=== PATIENT | female | born 2000 | race Caucasian/White ===

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

== ENCOUNTER → 2019-04-15 | Outpatient (REF) | payer OTHER | LOC: M SFHCLERA 18:37 | PROVIDERS: ATTEND Nurse Practitioner Family | DX: R53.81 Other malaise (principal) ==

== ENCOUNTER → 2020-01-25 | Outpatient (REF) | payer OTHER | LOC: M SFHCWAGY 16:47 | PROVIDERS: ATTEND Nurse Practitioner Family | DX: Z11.3 Encounter for screening for infections with a predominantly sexual mode of transmission (principal) ==

== ENCOUNTER 2020-05-09 00:04 | Emergency (ER) | payer OTHER ==
--- OUTSIDE RECORDS SUMMARY | 2020-05-09 00:14 | CCD ---
Author Author [facility] Organization [facility] Address Unknown Phone Unavailable Care Team Providers Care Mortgage Assistant Name Role Phone Felicitas Valdovinos Unavailable PROBLEMS Type Condition ICD9-CM Code [id number] Code Onset Dates Condition S tatus SNOMED Code Notes Problem Migraine with aura and without status migrainosu s, not intractable G43.109 Active 9875228 Problem Reactive airway disease with acute exacerbation, unspecified asthma severity, unspecified whether persistent J45.901 Active 579134593089 Problem Condyloma A63.0 Active 953874769 ALLERGIES Allergen (clinical drug ingredient) Drug/Non Drug Allergy do cumented on EMR Reaction Allergy Type Onset Date Status Seasonal congestion Non Drug Allergy Active ENCOUNTERS from 1999 to 2020-04-22 Encounter Location Date Provider Diagnosis [facility] [address] [place] [address] Mar, Felicitas Valdovinos Encounter for Depo-P rovera contraception Z30.42 and Encounter for surveillance of injectable contraceptive Z30.42 IMMUNIZATIONS Vaccine Route Administration Date Status Depo-Provera 150mg/1mL (Medroxy-Progestrone Acetate) IM Intr amuscular Apr 22, 2020 Administered Depo-Provera 150mg/1mL (Medroxy-Progestrone Acetate) IM Intr amuscular Jan 25, 2020 Administered Depo-Provera 150mg/1mL (Medroxy-Progestrone Acetate) IM Intr amuscular November 13, 2019 Administered Depo-Provera 150mg/1mL (Medroxy-Progestrone Acetate) IM Intr amuscular August 24, 2019 Administered Depo-Provera 150mg/1mL (Medroxy-Progestrone Acetate) IM Intr amuscular Jun 06, 2019 Administered Depo-Provera 150mg/1mL (Medroxy-Progestrone Acetate) IM Intr amuscular Mar 14, 2019 Administered Depo-Provera 150mg/1mL (Medroxy-Progestrone Acetate) IM Intr amuscular Dec 16, 2018 Administered Depo-Provera 150mg/1mL (Medroxy-Progestrone Acetate) IM Intr amuscular September 28, 2018 Administered SOCIAL HISTORY Tobacco Use: Social History Observation Description Date Details (start date - stop date) Current Smoker Sex Assigned At : Social History Observation Description Sex Assigned At Unknown Education: Question Answer Notes Level of Education: High School Language: Question Answer Notes Languages spoken: Gabonese Episcopal: Question Answer Notes Ep[employer] 21 Spirit[employer] Alcohol Screening: Question Answer Notes Did you have a drink containing alcohol in the past year? No Points 0 Interpretation Negative Tobacco Use: Question Answer Notes Are you a: current smoker Patient counseled on the dangers of tobacco use and urged to quit: 01/25/2020 How many cigarettes a day do you smoke? 5 or less Are you interested in quitting? Thinking about quitting Counseled the patient on smoking cessation, education provid ed 01/25/2020 REASON FOR REFERRAL No Information VITAL SIGNS No information MEDICATIONS Medication SIG (Take, Route, Frequency, Duration) Notes Start Da te End Date Status Cipro 500 MG 1 tablet Orally Twice a day for 7 day(s) 2017 Not-Taking Neti Pot Sinus Wash 2300-700 MG as directed Nasally bid for 10 d ay(s) Mar, Not-Taking Delsym 30 MG/5ML 10 ml as needed Orally every 12 hrs for 10 day( s) Mar, Not-Taking PredniSONE 10 MG 1 tablet Orally bid for 5 day(s) Mar, Not-Taking Adderall 15 MG 1 tablet Orally daily Active Paroxetine HCl 40 MG 1 tablet in the morning Orally Once a day Not-Taking Trintellix 20 MG 1 tablet Orally Once a day for 30 day(s) Active Flonase 50 MCG/ACT 1 spray in each nostril Nasally Twice a day f or 30 day(s) Mar, Active ZyrTEC Active Amitriptyline HCl 10 MG 1 tablet at bedtime Orally Once a day for 3 0 day(s) Not-Taking Albuterol Sulfate HFA 108 (90 Base) MCG/ACT 2 puffs as needed Inhalation every 6 hrs for 30 day(s) Mar, Active Podofilox 0.5 % 1 application to affected ar ea Externally to wart on mons Twice a day for three days then off x 4 days for 3 day(s) Sep, Not-Taking Depo-Provera 150 MG/ML 1 ml Intramuscular every 3 months for 90 day(s) Sep, Active Sudafed 30 MG 1 tablet as needed Orally every 6 hrs for 5 day(s) Mar, Not-Taking Paxil 30 MG 1 tablet in the morning Orally Once a day Not-Taking PROCEDURES from 1999 to 2020-04-22 Procedure Date Ordered Result Body Site Medication: Depo-Provera 150mg/1mL IM (Medroxyprogesterone A cetate) 2020-04-22 N/A RESULTS No Results REASON FOR VISIT DEPO MEDICAL (GENERAL) HISTORY Type Description Date Medical History recurrent UTIs Medical History anxiety Medical History migraine blurred vision vomiting pain be hind left eye Surgical History T & A Goals Section No Information Health Concerns No Information MEDICAL EQUIPMENT No Information MENTAL STATUS No Information FUNCTIONAL STATUS No Information ASSESSMENTS Encounter Date Diagnosis Assessment Notes Treatment Notes Treatm ent Clinical Notes Mar, Encounter for Depo-Provera contraception (ICD-10 - Z30.42) Mar, Encounter for surveillance o f injectable contraceptive (ICD-10 - Z30.42) PLAN OF TREATMENT Medication Medication Name Sig Start Date Stop Date Depo-Provera 150 MG/ML 1 ml Intramuscular every 3 months for 90 day(s) Sep, Next Appt Details Provider Name:Felicitas Valdovinos, 2020-07-08 11:00:00 AM, [address] [place], [address], Insurance Providers Payer Name Payer Address Payer Phone Insured Name Patient Relati onship to Insured Coverage Start Date Coverage End Date [employer] [address] [id number] [place] [address] [id number]
--- OUTSIDE RECORDS SUMMARY | 2020-05-09 00:14 | CCD ---
Author Author [facility] Organization [facility] Address Unknown Phone Unavailable Care Team Providers Care Research Hydrologist Name Role Phone Radha Ritter Unavailable PROBLEMS Type Condition ICD9-CM Code [id number] Code Onset Dates Condition S tatus SNOMED Code Notes Problem Migraine with aura and without status migrainosu s, not intractable G43.109 Active 0785513 Problem Reactive airway disease with acute exacerbation, unspecified asthma severity, unspecified whether persistent J45.901 Active 114437358113 Problem Condyloma A63.0 Active [id number] ALLERGIES Allergen (clinical drug ingredient) Drug/Non Drug Allergy do cumented on EMR Reaction Allergy Type Onset Date Status Seasonal congestion Non Drug Allergy Active ENCOUNTERS from 1999 to 2020-02-21 Encounter Location Date Provider Diagnosis [facility] [address] [place] [address] Jan, Radha Ritter Encounter for survei llance of injectable contraceptive Z30.42 ; Encounter for screening for infections with a predominantly sexual mode of transmission Z11.3 and Encounter for annual routine gynecological examination Z01.419 IMMUNIZATIONS Vaccine Route Administration Date Status Depo-Provera [...] School Language: Question Answer Notes Languages spoken: Czech Samaritan: Question Answer Notes [employer]ar[employer] 21 [employer] Alcohol Screening: Question Answer Notes Did you [...] REASON FOR REFERRAL No Information VITAL SIGNS Weight 128 lbs Jan, Height 69 in Jan, BMI 18.90 kg/m2 Jan, Blood pressure systolic 118 mm Hg Jan, Blood pressure diastolic 74 mm Hg Jan, MEDICATIONS Medication SIG (Take, Route, Frequency, Duration) Start Date En d Date Status Cipro 500 MG 1 tablet Orally Twice a day for 7 day(s) Nov, Not-Taking Neti Pot Sinus Wash 2300-700 MG as directed Nasally bid for 10 day(s) Mar, Not-Taking Delsym 30 MG/5ML 10 ml as needed Orally every 12 hrs for 10 day( s) Mar, Not-Taking PredniSONE 10 MG 1 tablet Orally bid for 5 day(s) Mar, Not-Taking Adderall 15 MG 1 tablet Orally daily Acti ve Paroxetine HCl 40 MG 1 tablet in the morning Orally Once a day Not-Taking Trintellix 20 MG 1 tablet Orally Once a day for 30 day(s) Active Flonase 50 MCG/ACT 1 spray in each nostril Nasally Twice a day for 30 day(s) Mar, Active ZyrTEC Active Amitriptyline [...] morning Orally Once a day Not-Taking PROCEDURES No Information RESULTS No Results REASON FOR VISIT ANNUAL MEDICAL (GENERAL) HISTORY Type Description Date Medical History recurrent UTIs Medical History anxiety Medical History migraine blurred vision vomiting pain be hind left eye Surgical History T & A Goals Section No Information Health Concerns No Information MEDICAL EQUIPMENT No Information MENTAL STATUS No Information FUNCTIONAL STATUS No Information ASSESSMENTS Encounter Date Diagnosis Notes Jan, Encounter for screening for infections with a predominantly sexual mode of transmission (ICD-10 - Z11.3) Jan, Encounter for surveillance o f injectable contraceptive (ICD-10 - Z30.42) Jan, Encounter for annual routine gynecological examination (ICD-10 - Z01.419) PLAN OF TREATMENT Medication Medication Name Sig Start Date Stop Date Depo-Provera 150 MG/ML 1 ml Intramuscular every 3 months for 90 day(s) Sep, Treatment Notes Test Name Order Date CHLAMYDIA & GC DNA AMPLIFICAT 2020-02-21 Future Test Test Name Order Date Medication: Depo-Provera 150mg/1mL IM (Medroxyprogeste olivia Acetate) 20201202 Medication: Depo-Provera 150mg/1mL IM (Medroxyprogeste olivia Acetate) 20200910 Medication: Depo-Provera 150mg/1mL IM (Medroxyprogeste olivia Acetate) 20200619 Medication: Depo-Provera 150mg/1mL IM (Medroxyprogeste olivia Acetate) [id number] Medication: Depo-Provera 150mg/1mL IM (Medroxyprogeste olivia Acetate) [id number] Next Appt Details 04/17/20 Reason:Depo Provera Provider Name:Radha Ritter, 2020-04-16 10:00:00 AM, [address] [place], [address], Follow Up:04/17/20Depo Provera Insurance Providers Payer Name Payer Address Payer Phone Insured Name Patient Relati onship to Insured Coverage Start Date Coverage End Date [facility] [id number] [facility] [id number] [id number]
--- OUTSIDE RECORDS SUMMARY | 2020-05-09 00:15 | CCD ---
Author Author [facility] Organization [facility] Address Unknown Phone Unavailable Care Team Providers Care Forcer Maker Name Role Phone GISSELLE LOTT MD Unavailable Unavailable GISSELLE LOTT MD Unavailable Unavailable GISSELLE LOTT MD Unavailable Unavailable GISSELLE LOTT MD Unavailable Unavailable GISSELLE LOTT MD Unavailable Unavailable GISSELLE LOTT MD Unavailable Unavailable GISSELLE LOTT MD Unavailable Unavailable GISSELLE LOTT MD Unavailable Unavailable GISSELLE LOTT MD Unavailable Unavailable GISSELLE LOTT MD Unavailable Unavailable GISSELLE LOTT MD Unavailable Unavailable GISSELLE LOTT MD Unavailable Unavailable GISSELLE LOTT MD Unavailable Unavailable GISSELLE LOTT MD Unavailable Unavailable GISSELLE LOTT MD Unavailable Unavailable GISSELLE LOTT MD Unavailable Unavailable GISSELLE LOTT MD Unavailable Unavailable GISSELLE LOTT MD Unavailable Unavailable GISSELLE LOTT MD Unavailable Unavailable GISSELLE LOTT MD Unavailable Unavailable GISSELLE LOTT MD Unavailable Unavailable GISSELLE LOTT MD Unavailable Unavailable GISSELLE LOTT MD Unavailable Unavailable GISSELLE LOTT MD Unavailable Unavailable GISSELLE LOTT MD Unavailable Unavailable GISSELLE LOTT MD Unavailable Unavailable GISSELLE LOTT MD Unavailable Unavailable GISSELLE LOTT MD Unavailable Unavailable GISSELLE LOTT MD Unavailable Unavailable GISSELLE LOTT MD Unavailable Unavailable GISSELLE LOTT MD Unavailable Unavailable GISSELLE LOTT MD Unavailable Unavailable GISSELLE LOTT MD Unavailable Unavailable GISSELLE LOTT MD Unavailable Unavailable GISSELLE LOTT MD Unavailable Unavailable GISSELLE LOTT MD Unavailable Unavailable GISSELLE LOTT MD Unavailable Unavailable GISSELLE LOTT MD Unavailable Unavailable GISSELLE LOTT MD Unavailable Unavailable GISSELLE LOTT MD Unavailable Unavailable GISSELLE LOTT MD Unavailable Unavailable GISSELLE LOTT MD Unavailable Unavailable GISSELLE LOTT MD Unavailable Unavailable GISSELLE LOTT MD Unavailable Unavailable GISSELLE LOTT MD Unavailable Unavailable GISSELLE LOTT MD Unavailable Unavailable Ann Sibley MD Unavailable Unavailable Ann Sibley MD Unavailable Unavailable Ann Sibley MD Unavailable Unavailable Ann Sibley MD Unavailable Unavailable LEIBELSPERGER, KWAME PA Unavailable Unavailable LEIBELSPERGER, KWAME PA Unavailable Unavailable LEIBELSPERGER, KWAME PA Unavailable Unavailable LEIBELSPERGER, KWAME PA Unavailable Unavailable LEIBELSPERGER, KWAME PA Unavailable Unavailable LEIBELSPERGER, KWAME PA Unavailable Unavailable LEIBELSPERGER, KWAME PA Unavailable Unavailable LEIBELSPERGER, KWAME PA Unavailable Unavailable LEIBELSPERGER, KWAME PA Unavailable Unavailable LEIBELSPERGER, KWAME PA Unavailable Unavailable LEIBELSPERGER, KWAME PA Unavailable Unavailable LEIBELSPERGER, KWAME PA Unavailable Unavailable LEIBELSPERGER, KWAME PA Unavailable Unavailable LEIBELSPERGER, KWAME PA Unavailable Unavailable LEIBELSPERGER, KWAME PA Unavailable Unavailable LEIBELSPERGER, KWAME PA Unavailable Unavailable LEIBELSPERGER, KWAME PA Unavailable Unavailable LEIBELSPERGER, KWAME PA Unavailable Unavailable LEIBELSPERGER, KWAME PA Unavailable Unavailable LEIBELSPERGER, KWAME PA Unavailable Unavailable LEIBELSPERGER, KWAME PA Unavailable Unavailable LEIBELSPERGER, KWAME PA Unavailable Unavailable LEIBELSPERGER, KWAME PA Unavailable Unavailable Doctor Provided, Family PHYS No Family Unavailable U navailable Ann Cheek PA Unavailable Unavailable O'idalmis, A Adrian PA Unavailable Unavailable O'idalmis, A Adrian PA Unavailable Unavailable O'idalmis, A Adrian PA Unavailable Unavailable O'idalmis, A Adrian PA Unavailable Unavailable O'idalmis, A Adrian PA Unavailable Unavailable O'idalmis, A Adrian PA Unavailable Unavailable O'idalmis, A Adrian PA Unavailable Unavailable O'idalmis, A Adrian PA Unavailable Unavailable O'idalmis, A Adrian PA Unavailable Unavailable O'idalmis, A Adrian PA Unavailable Unavailable O'idalmis, A Adrian PA Unavailable Unavailable O'idalmis, A Adrian PA Unavailable Unavailable O'idalmis, A Adrian PA Unavailable Unavailable O'idalmis, A Adrian PA Unavailable Unavailable O'idalmis, A Adrian PA Unavailable Unavailable O'idalmis, A Adrian PA Unavailable Unavailable O'idalmis, A Adrian PA Unavailable Unavailable O'idalmis, A Adrian PA Unavailable Unavailable O'idalmis, A Adrian PA Unavailable Unavailable O'idalmis, A Adrian PA Unavailable Unavailable O'idalmis, A Adrian PA Unavailable Unavailable O'idalmis, A Adrian PA Unavailable Unavailable O'idalmis, A Adrian PA Unavailable Unavailable O'idalmis, A Adrian PA Unavailable Unavailable O'idalmis, A Adrian PA Unavailable Unavailable O'idalmis, A Adrian PA Unavailable Unavailable O'idalmis, A Adrian PA Unavailable Unavailable O'idalmis, A Adrian PA Unavailable Unavailable O'idalmis, A Adrian PA Unavailable Unavailable O'idalmis, A Adrian PA Unavailable Unavailable O'idalmis, A Adrian PA Unavailable Unavailable Re-disclosure Warning The records that you are about to access may contain information from federally-assisted alcohol or drug abuse programs. If such information is present, then the following federally mandated warning applies: This information has been disclosed to you from records protected by federal confidentiality rules (42 CFR part 2). The federal rules prohibit you from making any further disclosure of this information unless further disclosure is expressly permitted by the written consent of the person to whom it pertains or as otherwise permitted by 42 CFR part 2. A general authorization for the release of medical or other information is NOT sufficient for this purpose. The Federal rules restrict any use of the information to criminally investigate or prosecute any alcohol or drug abuse patient.The records that you are about to access may contain highly sensitive health information, the redisclosure of which is protected by Article 27-F of the [place] State Public Health law. If you continue you may have access to information: Regarding HIV / AIDS; Provided by facilities licensed or operated by the [facility] Office of Mental Health; or Provided by the [facility] Office for People With Developmental Disabilities. If such information is present, then the following [facility] mandated warning applies: This information has been disclosed to you from confidential records which are protected by state law. State law prohibits you from making any further disclosure of this information without the specific written consent of the person to whom it pertains, or as otherwise permitted by law. Any unauthorized further disclosure in violation of state law may result in a fine or mcc sentence or both. A general authorization for the release of medical or other information is NOT sufficient authorization for further disc losure. Allergies and Adverse Reactions Type Description Substance Reaction Status Data Source(s ) Seasonal Seasonal Seasonal congestion Active [facility] ([facility]) Family History Family Member Name Family Member Gender Family Member Status Date o f Status Description Data Source(s) Unknown Condition [facility] Unknown Condition [facility] Unknown Condition [facility] Unknown Condition [facility] Unknown Condition [facility] Unknown Unknown Problem MEDENT ([facility], ) Unknown Unknown Problem MEDENT ([facility]) MGM, PGF Encounters Encounter Providers Location Date Indications Data Source(s ) ([facility]) [facility] Nurse Visit [address] [place] [address] 04/22/2020 12:00:00 AM EST eCW1 ([facility]) Outpatient [address] [facility], [facility] [address] 01/25/2020 12:00:00 AM EDT eCW1 ([facility]) Outpatient Attender: KWAME Lowe: No Fami ly Doctor Provided 11/30/2019 12:45:00 PM EDT - 11/30/2019 01:44:00 PM EDT [facility] Outpatient Attender: Krishna Sibley MD 11/20/2019 02:20:00 PM EDT M19.90 [facility] M19.90 Outpatient Attender: Krishna Hilliarderrjimmie: No Family Do ctor Provided 11/20/2019 01:39:00 PM EDT - 11/20/2019 02:16:00 PM EDT [facility] Outpatient Attender: KWAME MADERA 0 04:07:00 PM EDT LT KNEE PAIN [facility] LT KNEE PAIN ([facility]) [facility] Nurse Visit [address] [place] [address] 11/13/2019 12:00:00 AM EDT eCW1 ([facility]) Outpatient Attender: KWAME Lowe: No Fami ly Doctor Provided 11/09/2019 03:10:00 PM EDT - 11/09/2019 03:50:00 PM EDT [facility] Outpatient Attender: KWAME Lowe: No Fami ly Doctor Provided 10/24/2019 01:01:00 PM EDT - 12/14/2019 01:02:00 PM EDT LEFT KNEE,HAMSTRING TIGHTNESS [facility] LEFT KNEE,HAMSTRING TIGHTNESS Patient discharged. Outpatient Attender: KWAME MADERA 0 02:13:00 PM EDT S99.922A,M25.562 [facility] S99.922A,M25.562 Outpatient Attender: KWAME Lowe: SUSHIL LOTT MD 09/28/2019 01:49:00 PM EDT - 09/28/2019 03:42:00 PM EDT [facility] [address] [place] [address] 08/24/2019 12:00:00 AM EDT eCW1 ([facility]) Outpatient Attender: Adrian MADERA [facility][1] 08/08/2019 11:20:00 AM EDT MEDENT ([facility]) Outpatient Attender: Adrian MADERA [facility] 07/05/2019 01:00:00 PM EDT MEDENT ([facility]) Outpatient Attender: Adrian MADERA [facility] 06/21/2019 10:30:00 AM EST MEDENT ([facility]) [facility] [address] [place] [address] 06/06/2019 12:00:00 AM EST eCW1 ([facility]) Outpatient Attender: Adrian MADERA [facility] 05/12/2019 10:30:00 AM EST MEDENT ([facility]) [facility] [address] [place] [address] 04/15/2019 12:00:00 AM EST eCW1 ([facility]) Outpatient Attender: Adrian MADERA [facility] 03/16/2019 12:20:00 PM EST MEDENT ([facility]) [facility] [address] [place] [address] 03/14/2019 12:00:00 AM EST eCW1 ([facility]) [facility] [address] [place] [address] 03/11/2019 12:00:00 AM EST eCW1 ([facility]) [facility] [address] [place] [address] 03/11/2019 12:00:00 AM EST eCW1 ([facility]) [facility] [address] [place] [address] 03/11/2019 12:00:00 AM EST eCW1 ([facility]) Immunizations Vaccine Date Status Description Data Source(s) Depo-Provera 150mg/1mL (Medroxy-Progestrone Acetate) 11:05:00 AM EST completed eCW1 ([facility]) Depo-Provera 150mg/1mL (Medroxy-Progestrone Acetate) 02:53:00 PM EDT completed eCW1 ([facility]) Depo-Provera 150mg/1mL (Medroxy-Progestrone Acetate) 02:53:00 PM EDT completed eCW1 ([facility]) Depo-Provera 150mg/1mL (Medroxy-Progestrone Acetate) 02:35:00 PM EDT completed eCW1 ([facility]) Depo-Provera 150mg/1mL (Medroxy-Progestrone Acetate) 02:35:00 PM EDT completed eCW1 ([facility]) Depo-Provera 150mg/1mL (Medroxy-Progestrone Acetate) 02:35:00 PM EDT completed eCW1 ([facility]) Depo-Provera 150mg/1mL (Medroxy-Progestrone Acetate) 02:16:00 PM EDT completed eCW1 ([facility]) Depo-Provera 150mg/1mL (Medroxy-Progestrone Acetate) 02:16:00 PM EDT completed eCW1 ([facility]) Depo-Provera 150mg/1mL (Medroxy-Progestrone Acetate) 02:16:00 PM EDT completed eCW1 ([facility]) Depo-Provera 150mg/1mL (Medroxy-Progestrone Acetate) 02:16:00 PM EDT completed eCW1 ([facility]) Depo-Provera 150mg/1mL (Medroxy-Progestrone Acetate) 10:28:00 AM EST completed eCW1 ([facility]) Depo-Provera 150mg/1mL (Medroxy-Progestrone Acetate) 10:28:00 AM EST completed eCW1 ([facility]) Depo-Provera 150mg/1mL (Medroxy-Progestrone Acetate) 10:28:00 AM EST completed eCW1 ([facility]) Depo-Provera 150mg/1mL (Medroxy-Progestrone Acetate) 10:28:00 AM EST completed eCW1 ([facility]) Depo-Provera 150mg/1mL (Medroxy-Progestrone Acetate) 08:21:00 AM EST completed eCW1 ([facility]) Depo-Provera 150mg/1mL (Medroxy-Progestrone Acetate) 08:21:00 AM EST completed eCW1 ([facility]) Depo-Provera 150mg/1mL (Medroxy-Progestrone Acetate) 08:21:00 AM EST completed eCW1 ([facility]) Depo-Provera 150mg/1mL (Medroxy-Progestrone Acetate) 08:21:00 AM EST completed eCW1 ([facility]) Medications Medication Brand Name Start Date Product Form Dose Route Admi nistrative Instructions Pharmacy Instructions Status Indications Reaction Description Data Source(s) meloxicam 15 MG Oral Tablet Meloxicam Meloxicam 11/30/2019 04:27 :57 PM EDT 15 MG active [facility] Alprazolam 0.5 MG Oral Tablet [Xanax] Xanax 06/21/2019 12:00:00 AM EST active MED[facility] ([facility]) quetiapine 50 MG Oral Tablet Quetiapine Fumarate 06/21/2019 12:00:00 AM EST completed [facility] ([facility]) Trintellix Trintellix 06/21/2019 12:00:00 AM EST ORAL a ctive MEDENT ([facility]) Acetaminophen 300 MG / butalbital 50 MG / Caffeine 40 MG Oral Capsule [Fioricet] Fioricet 05/12/2019 12:00:00 AM EST ORAL active MEDENT ([facility]) 12 HR dextromethorphan polistirex 6 MG/M L Extended Release Suspension [Delsym] Delsym 30 MG/5ML Delsym 30 MG/5ML 04/15/2019 12:00:00 AM EST 10. 0 {ml_as_needed} suspended Delsym 30 MG/5M L eCW1 ([facility]) Flonase 50 MCG/ACT Flonase 50 MCG/ACT 04/15/2019 12:00:00 AM EST 1.0 {spray_in_each_nostril} active Flonase 50 MCG/ACT eCW1 ([facility]) Prednisone 10 MG Oral Tablet PredniSONE 10 MG PredniSONE 10 MG 04/15/2019 12:00:00 AM EST 1.0 {tablet} suspended PredniSONE 10 MG eCW1 ([facility]) Albuterol Sulfate HFA 108 (90 Base) MCG/ACT Albuterol Sulfate HFA 108 (90 Base) MCG/ACT 04/15/2019 12:00:00 AM EST 2.0 {puffs_as_needed} active Albuterol Sulfate HFA 108 (90 Base) MCG/ACT eCW1 ([facility]) Albuterol Sulfate HFA 108 (90 Base) MCG/ACT Albuterol Sulfate HFA 108 (90 Base) MCG/ACT 04/15/2019 12:00:00 AM EST 2.0 {puffs_as_needed} active Albuterol Sulfate HFA 108 (90 Base) MCG/ACT eCW1 ([facility]) Flonase 50 MCG/ACT Flonase 50 MCG/ACT 04/15/2019 12:00:00 AM EST 1.0 {spray_in_each_nostril} active Flonase 50 MCG/ACT eCW1 ([facility]) Sudafed 30 MG Sudafed 30 MG 04/15/2019 12:00:00 AM EST active 1 tablet as needed eCW1 ([facility]) Sudafed 30 MG Sudafed 30 MG 04/15/2019 12:00:00 AM EST 1.0 {tablet_as_needed} suspended Sudafed 30 MG eCW1 ( [facility]) Flonase 50 MCG/ACT Flonase 50 MCG/ACT 04/15/2019 12:00:00 AM EST active 1 spray in each nostril eCW1 ([facility]) Neti Pot Sinus Wash 2300-700 MG Neti Pot Sinus Wash 2300-700 MG 04/15/2019 12:00:00 AM EST suspended Neti Pot Sinus Wash 2300-700 MG eCW1 ([facility]) Albuterol Sulfate HFA 108 (90 Base) MCG/ACT Albuterol Sulfate HFA 108 (90 Base) MCG/ACT 04/15/2019 12:00:00 AM EST active 2 puffs as needed eCW1 ([facility]) 12 HR dextromethorphan polistirex 6 MG/M L Extended Release Suspension [Delsym] Delsym 30 MG/5ML Delsym 30 MG/5ML 04/15/2019 12:00:00 AM EST active 10 ml as needed eCW1 ([facility]) Prednisone 10 MG Oral Tablet PredniSONE 10 MG PredniSONE 10 MG 04/15/2019 12:00:00 AM EST 1.0 {tablet} suspended PredniSONE 10 MG eCW1 ([facility]) 12 HR dextromethorphan polistirex 6 MG/M L Extended Release Suspension [Delsym] Delsym 30 MG/5ML Delsym 30 MG/5ML 04/15/2019 12:00:00 AM EST 10. 0 {ml_as_needed} suspended Delsym 30 MG/5M L eCW1 ([facility]) Neti Pot Sinus Wash 2300-700 MG Neti Pot Sinus Wash 2300-700 MG 04/15/2019 12:00:00 AM EST suspended Neti Pot Sinus Wash 2300-700 MG eCW1 ([facility]) Sudafed 30 MG Sudafed 30 MG 04/15/2019 12:00:00 AM EST 1.0 {tablet_as_needed} suspended Sudafed 30 MG eCW1 ( [facility]) Flonase 50 MCG/ACT Flonase 50 MCG/ACT 04/15/2019 12:00:00 AM EST 1.0 {spray_in_each_nostril} active Flonase 50 MCG/ACT eCW1 ([facility]) Neti Pot Sinus Wash 2300-700 MG Neti Pot Sinus Wash 2300-700 MG 04/15/2019 12:00:00 AM EST active as direc nicholas eCW1 ([facility]) Sudafed 30 MG Sudafed 30 MG 04/15/2019 12:00:00 AM EST 1.0 {tablet_as_needed} suspended Sudafed 30 MG eCW1 ( [facility]) Prednisone 10 MG Oral Tablet PredniSONE 10 MG PredniSONE 10 MG 04/15/2019 12:00:00 AM EST 1.0 {tablet} suspended PredniSONE 10 MG eCW1 ([facility]) PredniSONE 10 MG PredniSONE 10 MG 04/15/2019 12:00:00 AM EST active 1 tablet eCW1 ([facility]) 12 HR dextromethorphan polistirex 6 MG/M L Extended Release Suspension [Delsym] Delsym 30 MG/5ML Delsym 30 MG/5ML 04/15/2019 12:00:00 AM EST 10. 0 {ml_as_needed} suspended Delsym 30 MG/5M L eCW1 ([facility]) Neti Pot Sinus Wash 2300-700 MG Neti Pot Sinus Wash 2300-700 MG 04/15/2019 12:00:00 AM EST suspended Neti Pot Sinus Wash 2300-700 MG eCW1 ([facility]) Albuterol Sulfate HFA 108 (90 Base) MCG/ACT Albuterol Sulfate HFA 108 (90 Base) MCG/ACT 04/15/2019 12:00:00 AM EST 2.0 {puffs_as_needed} active Albuterol Sulfate HFA 108 (90 Base) MCG/ACT eCW1 ([facility]) Paroxetine HCL Paroxetine HCL 03/16/2019 12:00:00 AM EST OR AL completed MEDENT ([facility]) Hydroxyzine Hydrochloride 10 MG Oral Tablet Hydroxyzine HCL 03/16/2019 12:00:00 AM EST ORAL completed MEDENT ([facility]) Clonidine Hydrochloride 0.1 MG Oral Tablet Clonidine HCL 02/15/2019 12:00:00 AM EDT ORAL completed MEDENT ([facility]) 24 HR Amphetamine aspartate 3.75 MG / Am phetamine Sulfate 3.75 MG / Dextroamphetamine saccharate 3.75 MG / Dextroamphetamine Sulfate 3.75 MG Extended Release Oral Capsule Amphetamine-Dextroamphet ER 01/12/2019 12:00:00 AM EDT ORAL completed MEDENT ([facility]) Insurance Providers Payer name Policy type / Coverage type Policy ID Covered green party ID Covered green party's relationship to ehnley Policy Hen[place] Plan Information [employer] [place] [employer] PL[employer] [id number] MO2 [id number] ANSI-Commercial [id number] [employer] [place] [employer] [id number] MO2 [id number] [employer]/BS Commercial [id number] Family Dependent [id number] [employer]/BS Commercial [id number] Family Dependent [id number] [employer] Commercial [id number] Family Dependent 1 [id number] [employer]/BS Commercial [id number] Family Dependent [id number] [facility] COMMERCIAL -O/P [id number] 18 [id number] [employer] Choice Plus Commercial [id number] Family Dependent [id number] [employer]/BS Commercial [id number] Family Dependent [id number] [employer]/BS Commercial [id number] Family Dependent [id number] [employer] Commercial [id number] Family Dependent 1 [id number] [facility] PLAN O [id number] S [id number] [employer]/BS Commercial [id number] Family Dependent [id number] [employer]/BS Commercial [id number] Family Dependent [id number] [employer] Commercial [id number] Family Dependent 1 [id number] ANSI-Commercial [id number] [employer] Commercial [id number] Family Dependent [id number] [employer] Commercial [id number] Family Dependent [id number] [employer] Commercial [id number] Family Dependent 1 [id number] [employer] Commercial [id number] Family Dependent [id number] [employer] Commercial [id number] Family Dependent [id number] [employer] Commercial [id number] Family Dependent 1 [id number] [employer] Commercial [id number] Family Dependent [id number] [employer] [place] CHOICE PLUS [id number] MO2 [id number] [employer] Commercial [id number] Family Dependent [id number] [employer] Commercial [id number] Family Dependent [id number] [employer] Commercial [id number] Family Dependent 1 [id number] [facility] [id number] [facility] [id number] [id number] 1 [id number] [facility] O [id number] S 1 [id number] [facility] MUTUAL O [id number] S [id number] [facility] [id number] SP [id number] [facility] [id number] MO2 1 [id number] [employer] [place] WAT[place] 306/806 [id number] MO2 [id number] [employer] BC/BS Commercial Family Dependent [employer] BC/BS Commercial Family Dependent [employer] BC/BS Commercial Family Dependent [employer] BC/BS Commercial Family Dependent EXCELLUS BCBS B [id number] C [id number] [id number] [employer] [place] WAT[place] 306/806 [id number] MO2 [id number] Problems, Conditions, and Diagnoses Code Display Name Description Problem Type Effective Dates Data Source(s) 92367252 Mild recurrent major depression Mild recurrent m ajor depression Problem 07/05/2019 12:00:00 AM EDT [place] ([facility]) J45.901 [id number] Reactive airway dise ase with acute exacerbation, unspecified asthma severity, unspecified whether persistent Problem 04/15/2019 12:00:00 AM EST eCW1 ([facility]) J45.901 [id number] Reactive airway dise ase with acute exacerbation, unspecified asthma severity, unspecified whether persistent Problem 04/15/2019 12:00:00 AM EST eCW1 ([facility]) Surgeries/Procedures Procedure Description Date Indications Data Source(s) Injection, medroxyprogesterone acetate for contraceptive use , 150 mg 04/22/2020 12:00:00 AM EST eCW1 ([facility]) Magnetic resonance imaging of knee (procedure) 04:10:50 PM EDT [facility] Magnetic resonance imaging of knee (procedure) 04:10:50 PM [facility] Magnetic resonance imaging of knee (procedure) 04:10:50 PM [facility] Injection, medroxyprogesterone acetate for contraceptive use , 150 mg 11/13/2019 12:00:00 AM EDT eCW1 ([facility]) Xray Calcaneus (Heel) RT 09/28/2019 02:21:04 PM T [facility] Xray Calcaneus (Heel) LT 09/28/2019 02:21:04 PM [facility] X-ray of left knee (procedure) 09/28/2019 02:21:04 PM [facility] Xray Calcaneus (Heel) RT 09/28/2019 02:21:04 PM [facility] Xray Calcaneus (Heel) LT 09/28/2019 02:21:04 PM [facility] X-ray of left knee (procedure) 09/28/2019 02:21:04 PM [facility] Xray Calcaneus (Heel) RT 09/28/2019 02:21:04 PM [facility] Xray Calcaneus (Heel) LT 09/28/2019 02:21:04 PM [facility] X-ray of left knee (procedure) 09/28/2019 02:21:04 PM [facility] Xray Calcaneus (Heel) RT 09/28/2019 02:21:04 PM [facility] Xray Calcaneus (Heel) LT 09/28/2019 02:21:04 PM [facility] X-ray of left knee (procedure) 09/28/2019 02:21:04 PM [facility] Xray Calcaneus (Heel) RT 09/28/2019 02:21:04 PM [facility] Xray Calcaneus (Heel) LT 09/28/2019 02:21:04 PM [facility] X-ray of left knee (procedure) 09/28/2019 02:21:04 PM [facility] Injection, medroxyprogesterone acetate, 1 mg 0 12:00:00 AM EDT eCW1 ([facility]) THER/PROPH/DIAG INJ, SC/IM 08/24/2019 12:00:00 AM EDT eCW1 ([facility]) STREP A ASSAY W/OPTIC 04/15/2019 12:00:00 AM EST eCW1 ([facility]) INFLUENZA ASSAY W/OPTIC 04/15/2019 12:00:00 AM EST eCW1 ([facility]) Results ID Date Data Source [id number] 11/30/2019 12:54:00 PM EDT [facility] Patient Name: EVELIN AL : 2000 Sex: F Pt Unit #: [id number] Location:[facility]B.[facility]TH[facility] Provider: Visit Date/Time: 11/30/19 Primary Insurance: [employer] Secondary Insurance: Self Pay Intake Vital Signs 11/30/19 12:59 Current Height 5 ft 7 in Current Weight 125 lb BMI 19.5 BP 116/67 Respiration 16 Pulse 87 Pulse Oximetry (%) 94 L Intake Visit Reasons: Knee pain follow-up Is patient in pain?: Yes Pain scale (1-10): 4 Allergies SEASONAL ALLERGIES Allergy (Mild, Verified 09/20/17 18:56) RUNNY EYES STUFFY HEAD NKDA Allergy (Intermediate, Uncoded 09/20/17 18:56) Other, not listed HIV Testing Offer - ages 13-64 Requirement for HIV testing offer been met?: Patient reports past refusal Coronavirus Screening Screening Have you traveled outside of [facility] or [facility] in the last 14 days.: No Has patient experienced coronavirus symptoms: No [facility] Medical History Anxiety Surgical History Status post tonsillectomy Family History Mother No problems noted. Father Hypertension Brother No problems noted. Sister No problems noted. Social History Does the Patient have a Healthcare Proxy: No Does Patient have a DNR?: No Does Patient have a Living Will?: No Hx Recent Travel (where): No alcohol intake: never substance use type: does not use HPI Additional HPI HPI Details: Patient is a 19 year old female, here for follow-up of the left knee. Patient had blood work performed at last office visit. She has also had an MRI of the left knee. She is currently informal physical therapy once a week which is helping with range of motion however has had no significant improvement in left knee pain. She continues to describe an aching pain throughout the left knee. Pain is increased at the end of a work shift. Knee pain follow-up * Associated symptoms: Denies fever(s) Review of Systems Const Denies anorexia, Denies excessive sweating, Denies fatigue, Denies fever(s), Denies headache(s), Denies weight gain and Denies weight loss Eyes Denies blurry vision, Denies change in vision, Denies dry eyes, Denies irritatio n, Denies itchy eyesand Denies loss of vision ENT Denies abnormal hearing, Denies dysphagia, Denies dizziness, Denies headache(s), Denies lip swelling, Denies nasal congestion, Denies nasal discharge, Denies disequilibrium, Denies sinus pain,Denies sore throat and Denies throat swelling Card Denies chest pain, Denies pedal edema, Denies lightheadedness, Denies palpitations and Denies dyspnea Resp Denies cough, Denies excessive phlegm production, Denies pain on inspiration, Denies dyspnea and Denies wheezing GI Denies abdominal pain, Denies change in bowel habits, Denies dysphagia, Denies early satiety, Deniesheartburn, Denies diarrhea, Denies nausea and Denies vomiting Musc Denies back pain, Reports arthralgias (left knee), Denies limited range of motion, Denies muscle cramps and Denies muscle weakness Skin/Breast Denies breast pain, Denies change in pigmentation, Denies lesions, Denies nail changes, Denies rash and Denies unusual bruising Neuro Denies abnormal hearing, Denies dizziness, Denies headache(s), Denies loss of vision, Denies memory loss, Denies paresthesias and Denies disequilibrium Psych Denies abnormal sleep pattern, Denies anxiety, Denies change in appetite, Denies depression, Denies irritability and Denies memory loss Endo Denies cold intolerance, Denies excessive sweating, Denies fatigue, Denies polyphagia, Denies polydipsia, Denies polyuria and Denies palpitations Kale/Lymph Denies easy bleeding, Denies easy bruising and Denies lymphadenopathy Aller/Immun Denies urticaria, Denies itchy eyes, Denies lip swelling, Denies seasonal rhinorrhea, Denies throat swelling and Denies wheezing Exam Const General: cooperative, healthy appearing, comfortable, well developed and well groomed Nutritional Appearance: average body habitus Orientation: alert, awake and oriented x3 [facility] Head: normal to inspection, normocephalic and atraumatic Eyes General: appearance normal, both eyes and all related structures Pupils: PERRL Neck Neck: normal visual inspection, full ROM and nontender Chest Chest: normal inspection of the chest Resp Effort Inspection: normal respiratory effort Skin Lesions: no lesions Rashes: no rashes Trauma: no lacerations or abrasions Neuro General: patient alert, patient awake and patient oriented x3 Cognition: normal cognition Speech: speech normal Motor: muscle tone normal throughout Extrem Other: Normal inspection today of the left knee with no swelling erythema or ecchymosis. No appreciable joint effusion upon inspection or palpation. No medial or lateral joint line tenderness. Some tenderness over the medial patellofemoral joint. Quadriceps mechanism is intact. Full knee flexion. Hamstring tightness is improved this patient is almost able to complete a toe touch whilst in the standing position. Knee is stable upon examination. Negative meniscal testing. Neurovascularly intact throughout the left lower extremity. Psych Appearance: grossly normal Thought Process: normal Thought Content: normal Insight: insight good Assessment Plan Assessment Plan (1) Chondromalacia of left patella: Code(s): M22.42 - Chondromalacia patellae, left knee Plan - Kwame Mahan PA-C: Recent inflammatory blood work panel is completely negative. Improvement with hamstring tightness since last office visit however continues to have left knee pain. We will try a course of prescription meloxicam 15 mg once daily with food and have patient follow-up in 2 months. (2) Bilateral calcaneal fractures: Code(s): S92.001A - Unspecified fracture of right calcaneus, initial enc ounter for closed fracture; S92.002A - Unspecified fracture of left calcaneus, initial encounter for closed fracture Qualifiers: Encounter type: sequela Fracture type: closed Qualified Code(s): S92.001S - Unspecified fracture of right calcaneus, sequela; S92.002S - Unspecified fracture of left calcaneus, sequela Electronically Signed By: <Electronically signed by Kwame Webb> Date/Time Signed: 11/30/19 1354 Name Value Range Interpretation Code Description Data Silva rce(s) Supporting Document(s) ID Date Data Source 11/20/2019 04:14:00 PM EDT [facility] Name Value Range Interpretation Code Description Data Silva rce(s) Supporting Document(s) C reactive protein [Mass/volume] in Serum or Plasma Less Than 2.9 0.0 -5.0 N [facility] @Report as less than lower limit ID Date Data Source 11/20/2019 04:35:00 PM EDT [facility] Value Range Interpretation Code Description Data Silva rce(s) Supporting Document(s) Erythrocyte sedimentation rate by Westergren method 4 mm/hr 0-20 N [facility] @Reenter manual test result: 4@by Yanely Calderon at 11/20/19 1635. ID Date Data Source 11/22/2019 07:07:00 PM [facility] Value Range Interpretation Code Description Data Silva rce(s) Supporting Document(s) Nuclear Ab [Titer] in Serum by Immunofluorescence Negative . [facility] Neg ative <1:80 Borderline 1:80 Positive > 1:80Performed at: RN - [facility] [address] [id number] Director: Farhana Salmeron MD, Phone: [phone] ID Date Data Source [id number] 11/20/2019 04:14:00 PM [facility] Value Range Interpretation Code Description Data Silva rce(s) Supporting Document(s) Rheumatoid factor [Units/volume] in Serum by Nephelometry Le ss Than 10.0 0.0-14.0 N [facility] ID Date Data Source [id number] 11/22/2019 07:07:00 PM [facility] Value Range Interpretation Code Description Data Silva rce(s) Supporting Document(s) Cyclic citrullinated peptide IgA+IgG Ab [Units/volume] in Serum or Plasma by Immunoassay 4 units 0-19 [facility] pital Negative <20 Weak positive 20 - 39 Moderate positive 40 - 59 Strong positive >59Performed at: BN - [facility] [address] [place], [place] [id number] Director: Kena Garrison MD, Phone: [phone] ID Date Data Source [id number] 11/20/2019 01:38:00 PM EDT [facility] Patient Name: EVELIN AL : 2000 Sex: F Pt Unit #: [id number] Location:[facility] Provider: Visit Date/Time: 11/20/19 Primary Insurance: [employer] Secondary Insurance: Self Pay Intake Vital Signs 11/20/19 13:40 BP 110/78 Respiration 16 Pulse 120 H Pulse Oximetry (%) 98 Oxygen Delivery Method room air Comment pt states she is anxious Intake Visit Reasons: Knee pain follow-up Is patient in pain?: Yes Pain scale (1-10): 5 Allergies SEASONAL ALLERGIES Allergy (Mild, Verified 09/20/17 18:56) RUNNY EYES STUFFY HEAD NKDA Allergy (Intermediate, Uncoded 09/20/17 18:56) Other, not listed HIV Testing Offer - ages 13-64 Requirement for HIV testing offer been met?: Patient reports past refusal Coronavirus Screening Screening Have you traveled outside of [facility] or [facility] in the last 14 days.: No Has patient experienced coronavirus symptoms: No [facility] Medical History Anxiety Surgical History Status post tonsillectomy Family History Mother No problems noted. Father Hypertension Brother No problems noted. Sister No problems noted. Social History Does the Patient have a Healthcare Proxy: No Does Patient have a DNR?: No Does Patient have a Living Will?: No Hx Recent Travel (where): No alcohol intake: never substance use type: does not use HPI Additional HPI HPI Details: Patient is a 19 year old female, here for MRI results of her Left knee. She did fall several days ago onto the knee, prior to the MRI, and has had increased pain. Patient describes pain in her left knee that seems worse, from her standpoint with climbing and descending stairs. She describes a popping sensation emanating from her knee joint. The pain in her knee is present both anteriorly as well as posteriorly. She is describing no mechanical symptomatology. She statesthat she has occasional swelling in the left knee. She also describes pain in other joints in both the upper and lower extremities. Knee pain follow-up * Associated symptoms: Denies fever(s) Review of Systems Const Denies anorexia, Denies excessive sweating, Denies fatigue, Denies fever(s), Denies headache(s), Denies weight gain and Denies dionne ght loss Eyes Denies blurry vision, Denies change in vision, Denies dry eyes, Denies irritation, Denies itchy eyesand Denies loss of vision ENT Denies abnormal hearing, Denies dysphagia, Denies dizziness, Denies headache(s), Denies lip swelling, Denies nasal congestion, Denies nasal discharge, Denies disequilibrium, Denies sinus pain,Denies sore throat and Denies throat swelling Card Denies chest pain, Denies pedal edema, Denies lightheadedness, Denies palpitations and Denies dyspnea Resp Denies cough, Denies excessive phlegm production, Denies pain on inspiration, Denies dyspnea and Denies wheezing GI Denies abdominal pain, Denies change in bowel habits, Denies dysphagia, Denies early satiety, Deniesheartburn, Denies diarrhea, Denies nausea and Denies vomiting Musc Denies back pain, Reports arthralgias (Left knee), Denies limited range of motion, Denies muscle cramps and Denies muscle weakness Skin/Breast Denies breast pain, Denies change in pigmentation, Denies lesions, Denies nail changes, Denies rash and Denies unusual bruising Neuro Denies abnormal hearing, Denies dizziness, Denies headache(s), Denies loss of vision, Denies memory loss, Denies paresthesias and Denies disequilibrium Psych Denies abnormal sleep pattern, Denies anxiety, Denies change in appetite, Denies depression, Denies irritability and Denies memory loss Endo Denies cold intolerance, Denies excessive sweating, Denies fatigue, Denies polyphagia, Denies polydipsia, Denies polyuria and Denies palpitations Kale/Lymph Denies easy bleeding, Denies easy bruising and Denies lymphadenopathy Aller/Immun Denies urticaria, Denies itchy eyes, Denies lip swelling, Denies seasonal rhinorrhea, Denies throat swelling and Denies wheezing Exam Const General: cooperative, healthy appearing, comfortable, well developed and well groomed Nutritional Appearance: average body habitus Orientation: alert, awake and oriented x3 [facility] Head: normal to inspection, normocephalic and atraumatic Eyes General: appearance normal, both eyes and all related structures Pupils: PERRL Neck Neck: normal visual inspection, full ROM and nontender Chest Chest: normal inspection of the chest Resp Effort Inspection: normal respiratory effort Skin Lesions: no lesions Rashes: no rashes Trauma: no lacerations or abrasions Neuro General: patient alert, patient awake and patient oriented x3 Cognition: normal cognition Speech: speech normal Motor: muscle tone normal throughout Extrem Other: Patient presents to clinic without assistive devices. She ambulates with a non antalgic gait. Examination of the left knee reveals full range of motion. She has evidence of a superficialpopliteal cyst on the posterior medial aspect of the knee joint. There is no significant crepitation within the patellofemoral joint when she actively flexes or extends the knee against gravity. Collateral ligament stress testing is normal. Any pressure applied to the undersurface ofthe patella either medially or laterally is extremely uncomfortable for the patient. Patellofemoraltracking appears normal. Quadriceps tone and strength are normal. Neurosensory and motor testing of the affected extremity are normal. Patient has normal peripheral pulses at the level of the leftfoot and ankle. Straight leg raise and sciatic tension tests are negative. Ipsilateral hip and lower back exams are normal. Psych Appearance: grossly normal Thought Process: normal Thought Content: normal Insight: insight good Assessment Plan Assessment Plan (1) Knee pain: Code(s): M25.569 - Pain in unspecified knee (2) Inflammatory arthritis: Status: Acute Code(s): M19.90 - Unspecified osteoarthritis, unspecified site SNOMED Code(s): 8393500 Category: Medical Plan - Krishna Sibley MD: MRI scan reviewed showed evidence of a popliteal cyst in the posterior medial aspect of the left knee. The MRI scan is otherwise unremarkable. We will go ahead and proceed with rheumatoid work-upto rule out an underlying inflammatory arthritis. Patient in the interim will continue with physical therapy. She will follow-up with us in a week's time for repeat evaluation. All questionswere answered. Orders: Orders: CRP, C-REACTIVE PROTEIN 11/20/19 RHEUMATOID FACTOR 11/20/19 SED RATE 11/20/19 JACINTA Abs w Rfx to Patterns(IFA) 11/20/19 CCP AB IGG/IGA(Cyc Citrul Pep) 11/20/19 Electronically Signed By: <Electronically signed by Krishna Sibley MD> Date/Time Signed: 11/21/19 1319 Name Value Range Interpretation Code Description Data Silva rce(s) Supporting Document(s) ID Date Data Source [id number] 11/17/2019 05:57:00 PM EDT [facility] [address] [place] [id number] [phone] NAME SEX PT STATUS ACCOUNT NUMBER EVELIN AL REG REF [id number] ORDERING PHYSICIAN LOCATION MEDICAL RECORD NO. [id number]ENDING PHYSICIAN DATE OF DATE OF EXAM/TIME Doctor Provided,No Family 2000 11/17/19 / 1610 TYPE / EXAM MRI Knee Left w/o REASON FOR EXAM left knee pain Clinical History/Indication for Exam: left knee pain MR LEFT LOWER EXTREMITY WITHOUT INTRAVENOUS CONTRAST KNEE INDICATION: left knee pain TECHNIQUE: Multiplanar magnetic resonance images of the left knee without intravenous contrast. COMPARISON: Previous x-ray left knee from 09/28/2019. FINDINGS: BONES/JOINTS/CARTILAGE: Patellofemoral compartment: See below. Femorotibial compartments: Tibial tuberosity-trochlear groove distance is 0.5 CM which is within normal limits. Extensor mechanism: Unremarkable. Medial meniscus: Unremarkable. No tear. Lateral meniscus: Unremarkable. No tear. Med ial capsule/supporting structures: Chronic grade I sprain/no tear or thickening medial collateral ligament at the femoral insertion. Lateral capsule/supporting structures: Unremarkable. Normal lateral collateral ligament. Anterior cruciate ligament: Unremarkable. Posterior cruciate ligament: Unremarkable. Musculature: Unremarkable. Soft tissues: 5.6 cm Mireles's cyst. IMPRESSION: Chronic grade I sprain/no tear or thickening medial collateral ligament at the femoral insertion. 5.6 cm Mireles's cyst. Remainder of the study was unremarkable. REPORT SIGNATURE ON FILE 11/17/2019 (17:57 Eastern Time ) Signed by: Niesha Suggs M.D., [facility] Reported By Niesha Suggs MD on 11/17/191756 Signed By Niesha Suggs MD on 11/17/191756 Date Time CC: Niesha Suggs MD; No Family PHYS Provided Techn: RIO Trans Dt/Tm: Trans by: DT Prt Dt/Tm: : Total DLP = 0.00 mGy-cm : Total Radiation Dose = 0.0000 mSv Lifetime Dose: 0 mSv Name Value Range Interpretation Code Description Data Silva rce(s) Supporting Document(s) ID Date Data Source [id number] 11/09/2019 03:14:00 PM EDT [facility] Patient Name: EVELIN AL : 2000 Sex: F Pt Unit #: [id number] Location:[facility] Provider: Visit Date/Time: 11/09/19 Primary Insurance: [employer] Secondary Insurance: Self Pay Intake Vital Signs 11/09/19 15:14 BP 114/72 Respiration 16 Pulse 76 Pulse Oximetry (%) 99 Oxygen Delivery Method room air Intake Visit Reasons: Foot pain Is patient in pain?: Yes Pain scale (1-10): 7 Allergies SEASONAL ALLERGIES Allergy (Mild, Verified 09/20/17 18:56) RUNNY EYES STUFFY HEAD NKDA Allergy (Intermediate, Uncoded 09/20/17 18:56) Other, not listed HIV Testing Offer - ages 13-64 Requirement for HIV testing offer been met?: Patient reports past refusal Coronavirus Screening Screening Have you traveled outside of [facility] or [facility] in the last 14 days.: No Has patient experienced coronavirus symptoms: No [facility] Medical History Anxiety Surgical History Status post tonsillectomy Family History Mother No problems noted. Father Hypertension Brother No problems noted. Sister No problems noted. Social History Does the Patient have a Healthcare Proxy: No Does Patient have a DNR?: No Does Patient have a Living Will?: No Hx Recent Travel (where): No Smoking Status: Current every day smoker HPI Additional HPI HPI Details: Patient is a 19 year old female, here for follow-up of the left knee pain as well as bilateral heel pain. There is been no significant improvement in heel pain over the patient also has not purchased heel cups or been fitted for more appropriate sneakers since last office visit. She continues to work long shifts where she is standing on her feet and notices the pain then. She has been to 3 physical therapy appointments and has had some improvement in knee pain however again by the end of a long workday she has significant left knee pain and continues to have crepitation and feels as if the pain is underneath her kneecap. She has worked with physical therapy and has nosignificant improvement in her left hamstring tightness. Foot/Ankle Pain Associated symptoms: Denies fever(s) Review of Systems Const Denies anorexia, Denies excessive sweating, Denies fatigue, Denies fever(s), Denies headache(s), Denies weight gain and Denies weight loss Eyes Denies blurry vision, Denies change in vision, Denies dry eyes, Denies irritation, Denies itchy eyesand Denies loss of vision ENT Denies abnormal hearing, Denies dysphagia, Denies dizziness, Denies headache(s), Denies lip swelling, Denies nasal congestion, Denies nasal discharge, Denies disequilibrium, Denies sinus pain, Denies sore throat and Denies throat swelling Card Denies chest pain, Denies pedal edema, Denies lightheadedness, Denies palpitations and Denies dyspnea Resp Denies cough, Denies excessive phlegm production, Denies pain on inspiration, Denies dyspnea and Denies wheezing GI Denies abdominal pain, Denies change in bowel habits, Denies dysphagia, Denies early satiety, Deniesheartburn, Denies diarrhea, Denies nausea and Denies vomiting Genitourinary: Denies difficulty voiding, urinary incontinence or urinary urgency Musc Denies back pain, Reports arthralgias (bilateral knee), Denies limited range of motion, Denies muscle cramps and Denies muscle weakness Skin/Breast Denies breast pain, Denies change in pigmentation, Denies lesions, Denies nail changes, Denies rash and Denies unusual bruising Neuro Denies abnormal hearing, Denies dizziness, Denies headache(s), Denies loss of vision, Denies memory loss, Denies paresthesias and Denies disequilibrium Psych Denies abnormal sleep pattern, Denies anxiety, Denies change in appetite, Denies depression, Denies irritability and Denies memory loss Endo Denies cold intolerance, Denies excessive sweating, Denies fatigue, Denies polyphagia, Denies polydipsia, Denies polyuria and Denies palpitations Kale/Lymph Denies easy bleeding, Denies easy bruising and Denies lymphadenopathy Aller/Immun Denies urticaria, Denies itchy eyes, Denies lip swelling, Denies seasonal rhinorrhea, Denies throat swelling and Denies wheezing Exam Const General: cooperative, healthy appearing, no acute distress, well developed and well groomed Nutritional Appearance: well nourished Orientation: alert, awake and oriented x3 [facility] Head: normal to inspection, normocephalic and atraumatic Eyes General: appearance normal, both eyes and all related structures Neck N thomas: normal visual inspection Chest Chest: normal inspection of the chest Resp Effort Inspection: normal respiratory effort Cardio Pulses: normal peripheral pulses GI Inspection: Yes normal to inspection Skin Lesions: no lesions Rashes: no rashes Hair: normal Nails: normal Neuro General: patient alert, patient awake, patient oriented x3, moves all extremities and normal light touch, pain and propioception Extrem Other: Patient again today is noted to have full pain-free range of motion of her bilateral ankles and subtalar joints. Continued tenderness inferior portion of the calcaneus bilaterally. Left kneerange of motion continues to have crepitation of the patellofemoral joint. Left hamstring tightnesshas significantly improved as in the standing position the patient is almost able to touch her toes. She is able to fully flex and extend the knee. Left patella remains laterally tilted with tenderness over the medial and lateral aspects of the patellofemoral joint. Nontender patellar tendon or quadriceps insertion. Psych Appearance: grossly normal and well kempt Mental Status: mental status grossly normal Assessment Plan Assessment Plan (1) Chondromalacia of left patella: Code(s): M22.42 - Chondromalacia patellae, left knee Plan - Kwame Mahan PA-C: Recommend MRI of the left knee due to continued pain. Also recommend continued physical therapy in the meantime. Patient will follow-up after MRI of the left knee. (2) Internal derangement of left knee: Code(s): M23.92 - Unspecified internal derangement of left knee (3) Bilateral calcaneal fractures: Code(s): S92.001A - Unspecified fracture of right calcaneus, initial encounter for closed fracture; S92.002A - Unspecified fracture of left calcaneus, initial encounter for closed fracture Qualifiers: Encounter type: sequela Fracture type: closed Qualified Code(s): S92.001S - Unspecified fracture of right calcaneus, sequela; S92.002S - Unspecified fracture of left calcaneus, sequela Plan - Kwame Mahan PA-C: Again recommend purchasing heel cups and appropriate sneakers. Electronically Signed By: <Electronically signed by Kwame Webb> Date/Time Signed: 11/09/19 1725 Name Value Range Interpretation Code Description Data Silva rce(s) Supporting Document(s) ID Date Data Source [id number] 10/24/2019 01:11:00 PM EDT [facility] [facility] EVELIN AL : 2000 Date: 10/24/19 [id number] Attending: Kwame Mahan PA-C PT Outpatient Evaluation - Evaluation/Subjective Diagnosis:: left knee chondramalagia, jennifer hamstring tightness Impairments: Pain, Decreased Strength, Impaired ambulation - Subjective Subjective: Patient presents with jennifer knee pain L>R that began about 1 year after she fractured bilcalcaneus from jumping off the bridge. PAtient works at [employer] and she is up/down stairs and walking a lot making her knees and ankles sore. Pain at worse is 8-9/10. Pain at best is 2/10. Patient is not taking anything for pain - Objective Objective: Observation: Patient with no edema bilateral ankles. AROM: left ankle full t/o all motions, WFL jennifer knees. right ankle full t/o all motions. Strength: left ankle 5/5 t/o all motions except 4+/5 ankle eversion and inversion. -quad: 3+/5. -hamstrin-/5. -glut: 3+/5. right ankle 5/5 except PF 4/5 and eversion 4+/5. Special tests: (+) 90/90 jennifer Assessment: Patient presents with signs and symptoms consistent with jennifer chondramalagia patella Plan: Patient to be seen 1-2x/week for 6 weeks Interventions: Therapeutic exercise, Patient education - Plan of Care Short Term Goal #1: Patient will be independent and 100% accurate with HEP. Short Term Goal #2: Patient will demo less then 20 deg of hamstring tightness to reduce muscle imbalance in 3 weeks Short Term Goal #3: - jail goal #1: Patient to demonstrate 4/5 strength to reduce pain and improve knee valgus when performing stairs in 6 weeks Health And Safety Advisor Goal #2: Patient to report no pain with resuming exercises in 6 weeks jail goal #3: NA Frequency: 2x/week Rehab Potential: Good Visits Requested: 12 Expiration date of orders:: 12/05/19 Therapist Christina Mullen 10/24/19 1311 I certify this plan of care Cosigner Date Time LAST EDIT: Name Value Range Interpretation Code Description Data Silva rce(s) Supporting Document(s) ID Date Data Source [id number] 09/28/2019 03:05:00 PM EDT [facility] [address] [place], [place] [id number] [phone] NAME SEX PT STATUS ACCOUNT NUMBER EVELIN AL REG REF [id number] ORDERING PHYSICIAN LOCATION MEDICAL RECORD NO. Kwame Mahan [facility] [id number] ATTENDING PHYSICIAN DATE OF DATE OF EXAM/TIME Doctor Provided,No Family 2000 09/28/191420 TYPE / EXAM Xray Calcaneus (Heel) RT REASON FOR EXAM right heel injury-Ortho COMPARISON: None FINDINGS: There is normal alignment and position of the bones of the hindfoot. No fractures are identified. No soft tissue abnormalities are noted. IMPRESSION: No fracture, dislocation, or other significant abnormality. Reported By Siddharth Dodge MD on 09/28/191504 Signed By Siddharth Dodge MD on 09/28/191504 Date Time CC: Siddharth Dodge MD; No Family PHYS Provided Techn: EBEBR Trans Dt/Tm: Trans by: DT Prt Dt/Tm: [id number]: Total DLP = 0.00 mGy-cm Fluoroscopy Time (in secs): Name Value Range Interpretation Code Description Data Silva rce(s) Supporting Document(s) ID Date Data Source [id number] 09/28/2019 03:05:00 PM EDT [facility] [address] [place] [address] [phone] NAME SEX PT STATUS ACCOUNT NUMBER EVELIN AL REG REF [id number] ORDERING PHYSICIAN LOCATION [id number]END[facility] PHYSICIAN DATE OF DATE OF EXAM/TIME Doctor Provided,No Family 2000 09/28/191420 TYPE / EXAM Xray Calcaneus (Heel) LT REASON FOR EXAM left heel injury-Ortho COMPARISON: None FINDINGS: There is normal alignment and position of the bones of the hindfoot. No fractures are identified. No soft tissue abnormalities are noted. IMPRESSION: No fracture, dislocation, or other significant abnormality. Reported By Siddharth Dodge MD on 09/28/19 1505 Signed By Siddharth Dodge MD on 09/28/19 1505 Date Time CC: Siddharth Dodge MD; No Family PHYS Provided Techn: EBEBR Trans Dt/Tm: Trans by: DT Prt Dt/Tm: : Total DLP = 0.00 mGy-cm Fluoroscopy Time (in secs): Name Value Range Interpretation Code Description Data Silva rce(s) Supporting Document(s) ID Date Data Source [id number] 09/28/2019 02:53:00 PM EDT [facility] [address] [place] [id number] [phone] NAME SEX PT STATUS ACCOUNT NUMBER EVELIN AL REG REF [id number] ORDERING PHYSICIAN LOCATION MEDICAL RECORD NO. Kwame CASSY-C [facility] [id number] ATTENDING PHYSICIAN DATE OF DATE OF EXAM/TIME Doctor Provided,No Family 2000 09/28/19 / 1420 TYPE / EXAM Xray Knee comp 4 or more LT REASON FOR EXAM Left knee pain-Ortho COMPARISON: February 18, 2012 FINDINGS: There is normal alignment and position of the bones of the knee. No evidence for joint effusion isnoted. No fractures are identified. IMPRESSION: No fracture, dislocation, or other significant abnormality. Reported By Siddharth Dodge MD on 09/28/19 3704 Signed By Siddharth Dodge MD on 09/28/19 1504 Date Time CC: Siddharth Dodge MD; No Family PHYS Provided Techn: EBEBR Trans Dt/Tm: Trans by: DT Prt Dt/Tm: [id number]: Total DLP = 0.00 mGy-cm Fluoroscopy Time (in secs): Name Value Range Interpretation Code Description Data Silva rce(s) Supporting Document(s) ID Date Data Source [id number] 09/28/2019 01:50:00 PM EDT [facility] Patient Name: EEVLIN AL : 2000 Sex: F Pt Unit #: [id number] Location:AMB.ORTHO Provider: Visit Date/Time: 09/28/19 Primary Insurance: [facility] Secondary Insurance: Self Pay Intake Vital Signs 09/28/19 13:51 Current Height 5 ft 7 in Current Weight 125 lb BMI 19.5 BP 130/78 Respiration 16 Pulse 102 H Pulse Oximetry (%) 97 Intake Visit Reasons: recheck bilateral heels Is patient in pain?: Yes Pain scale (1-10): 5 Allergies SEASONAL ALLERGIES Allergy (Mild, Verified 09/20/17 18:56) RUNNY EYES STUFFY HEAD NKDA Allergy (Intermediate, Uncoded 09/20/17 18:56) Other, not listed HIV Testing Offer - ages 13-64 Requirement for HIV testing offer been met?: Patient reports past refusal Coronavirus Screening Screening Have you traveled outside of [facility] or [facility] in the last 14 days.: No Has patient experienced coronavirus symptoms: No PFSH Medical History Anxiety Surgical History Status post tonsillectomy Family History Mother No problems noted. Father Hypertension Brother No problems noted. Sister No problems noted. Social History Does the Patient have a Healthcare Proxy: No Does Patient have a DNR?: No Does Patient have a Living Will?: No Hx Recent Travel (where): No HPI Additional HPI HPI Details: New patient is a 19 year old female, here for a recheck of her bilateral heel pain. She injured both heels back in 2018 suffering bilateral calcaneal fractures which were treated closed. She continues to have numbness and tingling in both heels that she experiences intermittently. She also experiences some burning discomfort especially if she is on her feet for long periods of time. When she runs, both ankles cause pain. She has sharp pain in the left knee, under the patella. She has increased pain with standing for short periods of time. She has noticed profound crepitation ofthe left knee with flexion and extension more recently. Review of Systems Const Denies anorexia, Denies excessive sweating, Denies fatigue, Denies fever(s), Denies headache(s), Denies weight gain and Denies weight loss Eyes Denies blurry vision, Denies change in vision, Denies dry eyes, Denies irritation, Denies itchy eyesand Denies loss of vision ENT Denies abnormal hearing, Denies dysphagia, Denies dizziness, Denies headache(s), Denies lip swelling, Denies nasal congestion, Denies nasal discharge, Denies disequilibrium, Denies sinus pain,Denies sore throat and Denies throat swelling Card Denies chest pain, Denies pedal edema, Denies lightheadedness, Denies palpitations and Denies dyspnea Resp Denies cough, Denies excessive phlegm production, Denies pain on inspiration, Denies dyspnea and Denies wheezing GI Denies abdominal pain, Denies change in bowel habits, Denies dysphagia, Denies early satiety, Deniesheartburn, Denies diarrhea, Denies nausea and Denies vomiting Genitourinary: Denies difficulty voiding, urinary incontinence or urinary urgency Musc Denies back pain, Reports arthralgias (bilateral heel ), Denies limited range of motion, Denies muscle cramps and Denies muscle weakness Skin/Breast Denies breast pain, Denies change in pigmentation, Denies lesions, Denies nail changes, Denies rash and Denies unusual bruising Neuro Denies abnormal hearing, Denies dizziness, Denies headache(s), Denies loss of vision, Denies memory loss, Denies paresthesias and Denies disequilibrium Psych Denies abnormal sleep pattern, Denies anxiety, Denies change in appetite, Denies depression, Denies irritability and Denies memory loss Endo Denies cold intolerance, Denies excessive sweating, Denies fatigue, Denies polyphagia, Denies polydipsia, Denies polyuria and Denies palpitations Kale/Lymph Denies easy bleeding, Denies easy bruising and Denies lymphadenopathy Aller/Immun Denies urticaria, Denies itchy eyes, Denies lip swelling, Denies seasonal rhinorrhea, Denies throat swelling and Denies wheezing Exam Const General: cooperative, healthy appearing, no acute distress, well developed and well groomed Nutritional Appearance: well nourished Orientation: alert, awake and oriented x3 HENMT Head: normal to inspection, normocephalic and atraumatic Eyes General: appearance normal, both eyes and all related structures Neck Neck: normal visual inspection Chest Chest: normal inspection of the chest Resp Effort Inspection: normal respiratory effort Cardio Pulses: normal peripheral pulses GI Inspection: Yes normal to inspection Skin Lesions: no lesions Rashes: no rashes Hair: normal Nails: normal Neuro General: patient alert, patient awake, patient oriented x3, moves all extremities and normal light touch, pain and propioception Extrem Other: Evaluation of her lower extremity shows no gross abnormalities with no appreciable swelling and no appreciable joint effusion of bilateral knee or ankles. She is ambulating without any antalgic gait however when evaluated in a supine position the patient has extremely tight hamstrings bilaterally both with the knee in a flexed as well as extended position. Her left knee has severe crepitation of the patellofemoral joint with flexion and extension with a positive patellar grind test. No medial lateral joint line tenderness of the left knee. Right knee examination is benign. Bilateral hip examination is benign. She has excellent range of motion of bilateral ankle joints withfull ankle dorsiflexion and plantarflexion. Surprisingly she has excellent range of motion of her subtalar joints which are within normal limits bilaterally. Bilateral calcanei are quite tender over the plantar surface as well as when squeezed medially and laterally. She has intact sensation throughout her lower extremities with intact peripheral pulses. Psych Appearance: grossly normal and well kempt Mental Status: mental status grossly normal Assessment Plan Assessment Plan (1) Bilateral calcaneal fractures: Code(s): S92.001A - Unspecified fracture of right calcaneus, initial encounter for closed fracture; S92.002A - Unspecified fracture of left calcaneus, initial encounter for closed fracture Qu alifiers: Encounter type: sequela Fracture type: closed Qualified Code(s): S92.001S - Unspecified fracture of right calcaneus, sequela Plan - Kwame Mahan PA-C: X-rays today show complete healing of previous bilateral calcanei fractures without any bony abnormalities. She has excellent ankle and subtalar range of motion today. Typically subtalar range of motion can be affected after calcaneus fractures however again she has excellent range of motion and strength. Can appreciate no Achilles tendon tightening. (2) Internal derangement of left knee: Code(s): M23.92 - Unspecified internal derangement of left knee Plan - Kwame Mahan PA-C: Profound catching and clunking of the patellofemoral joint with knee flexion and extension. We willinitiate a course of formal physical therapy however certainly may require MRI of the left knee if no improvement. (3) Chondromalacia of left patella: Code(s): M22.42 - Chondromalacia patellae, left knee (4) Muscle tightness: Code(s): M62.89 - Other specified disorders of muscle Plan - Kwame Mahan PA-C: Bilateral hamstrings are severely tight affecting her gait. This will also be addressed with physical therapy. Patient is to follow-up in 4 to 6 weeks for repeat evaluation of all orthopedic complaints. Orders Other Orders: Orders: Xray Knee comp 4 or more LT 09/28/19 M25.562 Xray Calcaneus (Heel) LT 09/28/19 S99.922A Xray Calcaneus (Heel) RT 09/28/19 S99.921A Electronically Signed By: <Electronically signed by Kwame Webb> Date/Time Signed: 09/29/19 1832 Name Value Range Interpretation Code Description Data Silva rce(s) Supporting Document(s) ID Date Data Source GATS (NEGATIVE STREP SCREEN) 04/15/2019 12:00:00 AM EST eCW1 ([facility]) Name Value Range Interpretation Code Description Data Silva rce(s) Supporting Document(s) FULL REPORT IN LAB NOTES (eCW and Medent). GATS CULTURE (NEG STREP SCR) eCW1 ([facility]) Procedure Social History Code Duration Value Status Description Data Source(s ) Smoking 01/25/2020 12:00:00 AM EDT Current Smoker completed Curre nt Smoker eCW1 ([facility]) Smoking 01/25/2020 12:00:00 AM EDT Current Smoker completed Curre nt Smoker eCW1 ([facility]) Smoking 11/13/2019 12:00:00 AM EDT Current Smoker completed Curre nt Smoker eCW1 ([facility]) 11/09/2019 03:18:49 PM EDT Current every day smoker co mpleted Current every day smoker [facility] 11/09/2019 03:18:49 PM EDT Current every day smoker co mpleted Current every day smoker [facility] 11/09/2019 03:18:49 PM EDT Current every day smoker co mpleted Current every day smoker [facility] 11/09/2019 03:18:49 PM EDT Current every day smoker co mpleted Current every day smoker [facility] Smoking 11/09/2019 03:18:00 PM EDT Current every day smoker co mpleted Current every day smoker [facility] Smoking 11/09/2019 03:18:00 PM EDT Current every day smoker co mpleted Current every day smoker [facility] Smoking 11/09/2019 03:18:00 PM EDT Current every day smoker co mpleted Current every day smoker [facility] Smoking 11/09/2019 03:18:00 PM EDT Current every day smoker co mpleted Current every day smoker [facility] Vital Signs ID Date Data Source UNK Name Value Range Interpretation Code Description Data Source(s) Diastolic blood pressure 74 mm[Hg] 74 mm[Hg] W1 ([facility]) Systolic blood pressure 118 mm[Hg] 118 mm[Hg] e CW1 ([facility]) Body mass index (BMI) [Ratio] 18.90 kg/m2 18.90 kg/m2 W1 ([facility]) Body height 69 [in_i] 69 [in_i] W1 ([facility]) Body weight 128 [lb_av] 128 [lb_av] W1 ([facility]) Diastolic blood pressure 66 mm[Hg] 66 mm[Hg] eCW1 ([facility]) Systolic blood pressure 114 mm[Hg] 114 mm[Hg] e CW1 ([facility]) Body mass index (BMI) [Ratio] 17.57 kg/m2 17.57 kg/m2 eCW1 ([facility]) Body height 69 [in_i] 69 [in_i] eCW1 ([facility]) Body weight 119 [lb_av] 119 [lb_av] eCW1 ([facility]) Diastolic blood pressure 74 mm[Hg] 74 mm[Hg] MEDENT ([facility]) Systolic blood pressure 116 mm[Hg] 116 mm[Hg] M EDENT ([facility]) Oxygen saturation in Arterial blood by Pulse oximetry 98 % 98 % [facility] ([facility]) Body temperature 99.0 [degF] 99.0 [degF] MED[facility] ([facility]) Respiratory rate 18 /min 18 /min [facility] ( [facility]) Heart rate 83 /min 83 /min MED[facility] ([facility]) Body mass index (BMI) [Ratio] 18.8 kg/m2 18.8 k g/m2 MED[facility] ([facility]) Body weight 123.00 [lb_av] 123.00 [lb_av] MEDEN T ([facility]) Body height 67.9 [in_i] 67.9 [in_i] MEDENT ([facility]) 5'7.90" Oxygen saturation in Arterial blood by Pulse oximetry 99 % 99 % [facility] ([facility]) Body temperature 99.1 [degF] 99.1 [degF] [facility] ([facility]) Respiratory rate 20 /min 20 /min [facility] ( [facility]) Heart rate 93 /min 93 /min [facility] ([facility]) Body mass index (BMI) [Ratio] 18.1 kg/m2 18.1 k g/m2 MED[facility] ([facility]) Body weight 118.50 [lb_av] 118.50 [lb_av] MEDEN T ([facility]) Body height 67.9 [in_i] 67.9 [in_i] MEDENT ([facility]) " Diastolic blood pressure 68 mm[Hg] 68 mm[Hg] MEDENT ([facility]) Systolic blood pressure 108 mm[Hg] 108 mm[Hg[facility] Oxygen saturation in Arterial blood by Pulse oximetry 98 % 98 % [facility] ([facility]) Body temperature 99.3 [degF] 99.3 [degF] MED[facility] ([facility]) Respiratory rate 18 /min 18 /min [facility] ( [facility]) Heart rate 103 /min 103 /min [facility] ([facility]) Body mass index (BMI) [Ratio] 18.9 kg/m2 18.9 k g/m2 [facility] ([facility]) Body weight 124.00 [lb_av] 124.00 [lb_av] MEDEN T ([facility]) Body height 67.9 [in_i] 67.9 [in_i] MEDENT ([facility]) " Diastolic blood pressure 60 mm[Hg] 60 mm[Hg[facility] Systolic blood pressure 106 mm[Hg] 106 mm[Hg] [facility] Oxygen saturation in Arterial blood by Pulse oximetry 98 % 98 % [facility] ([facility]) Body temperature 98.4 [degF] 98.4 [degF] [facility] Heart rate 104 /min 104 /[facility] Body mass index (BMI) [Ratio] 18.0 kg/m2 18.0 k g/m2 [facility] ([facility]) Body weight 118.31 [lb_av] 118.31 [lb_av] MEDEN T ([facility]) Body height 67.9 [in_i] 67.9 [in_i] MEDENT ([facility]) " Diastolic blood pressure 62 mm[Hg] 62 mm[Hg] MED[facility] ([facility]) Systolic blood pressure 112 mm[Hg] 112 mm[Hg] M EDENT ([facility]) Diastolic blood pressure 67 mm[Hg] 67 mm[Hg] eCW1 ([facility]) Systolic blood pressure 121 mm[Hg] 121 mm[Hg] e CW1 ([facility]) Body temperature 98.4 [degF] 98.4 [degF] eCW1 ( [facility]) Respiratory rate 16 /min 16 /min eCW1 ([facility]) Heart rate 109 /min 109 /min eCW1 ([facility]) Body mass index (BMI) [Ratio] 17.57 kg/m2 17.57 kg/m2 eCW1 ([facility]) Body height 69 [in_us] 69 [in_us] eCW1 ([facility]) Body weight Measured 119 [lb_av] 119 [lb_av] eC W1 ([facility]) Oxygen saturation in Arterial blood by Pulse oximetry 99 % 99 % [facility] ([facility]) Body temperature 98.3 [degF] 98.3 [degF] [facility] ([facility]) Respiratory rate 20 /min 20 /min [facility] ( [facility]) Heart rate 100 /min 100 /min [facility] ([facility]) Body mass index (BMI) [Ratio] 17.8 kg/m2 17.8 k g/m2 [facility] ([facility]) Body weight 117.00 [lb_av] 117.00 [lb_av] MEDEN T ([facility]) Body height 67.9 [in_i] 67.9 [in_i] MEDENT ([facility]) 5'7.90" Diastolic blood pressure 82 mm[Hg] 82 mm[Hg] [facility] ([facility]) Systolic blood pressure 132 mm[Hg] 132 mm[Hg] M EDENT ([facility]) Diastolic blood pressure 74 mm[Hg] 74 mm[Hg] eCW1 ([facility]) Systolic blood pressure 114 mm[Hg] 114 mm[Hg] e CW1 ([facility]) Body temperature 97.7 [degF] 97.7 [degF] eCW1 ( [facility]) Respiratory rate 18 /min 18 /min eCW1 ([facility]) Heart rate 120 /min 120 /min eCW1 ([facility]) Body mass index (BMI) [Ratio] 17.57 kg/m2 17.57 kg/m2 eCW1 ([facility]) Body height 69 [in_us] 69 [in_us] eCW1 ([facility]) Body weight Measured 119 [lb_av] 119 [lb_av] eC W1 ([facility]) Patient Treatment Plan of Care Planned Activity Planned Date Details Description Data Source (s) 12 HR dextromethorphan polistirex 6 MG/ML Extended Rel ease Suspension [Delsym] 04/15/2019 12:00:00 AM EST eCW1 ([facility]) Flonase 50 MCG/ACT 04/15/2019 12:00:00 AM EST eCW1 ([facility]) Albuterol Sulfate HFA 108 (90 Base) MCG/ACT 04/15/2019 12:00:00 AM EST eCW1 ([facility]) Neti Pot Sinus Wash 2300-700 MG 04/15/2019 12:00:00 AM EST eCW1 ([facility]) PredniSONE 10 MG 04/15/2019 12:00:00 AM EST eCW1 ([facility]) Sudafed 30 MG 04/15/2019 12:00:00 AM EST eCW1 ([facility])
[2020-05-09 00:58] VITALS: BP 120/70
--- OUTSIDE RECORDS SUMMARY | 2020-05-09 01:47 | CCD ---
Author Author [facility] Organization [facility] Address Unknown Phone Unavailable Care Team Providers Care Oil Processing Technician Name Role Phone GISSELLE LOTT MD Unavailable Unavailable GISSELLE LOTT MD Unavailable Unavailable GISSELLE LOTT MD Unavailable Unavailable GISSELLE LOTT MD Unavailable Unavailable GISSELLE LOTT MD Unavailable Unavailable GISSELLE OLTT MD Unavailable Unavailable GISSELLE LOTT MD Unavailable [...] Unavailable O'idalmis, A Adrian PA Unavailable Unavailable O'idalmsi, A Adrian PA Unavailable Unavailable O'idalmis, A [...] is protected by Article 27-F of the [place] State Public Health law. If you continue you may have access to information: Regarding HIV / AIDS; Provided by facilities licensed or operated by the [facility] Office of Mental Health; or Provided by the [facility] Office for People With Developmental Disabilities. If such information is present, then the following [facility] mandated warning applies: This information has been [...] law may result in a fine or assisted sentence or both. A general authorization for the release of medical or other information is NOT sufficient authorization for further disc losure. Allergies and Adverse Reactions Type Description Substance Reaction Status Data Source(s ) Seasonal Seasonal Seasonal congestion Active [facility] ([facility]) Family History Family Member Name Family Member Gender Family Member Status Date o f Status Description Data Source(s) Unknown Condition [facility] Unknown Condition [facility] Unknown Condition [facility] Unknown Condition [facility] Unknown Condition [facility] Unknown Unknown Problem MEDENT ([facility] ) Unknown Unknown Problem [facility] ([facility] MGM, PGF Encounters Encounter Providers Location Date Indications Data Source(s ) ([facility]) [facility] Nurse Visit [address] [place] [address] 04/22/2020 12:00:00 AM EST eCW1 ([facility]) Outpatient [address] [facility], [facility] [address] 01/25/2020 12:00:00 AM EDT eCW1 ([facility]) Outpatient Attender: KWAME Lowe: No Fami ly Doctor Provided 11/30/2019 12:45:00 PM EDT - 11/30/2019 01:44:00 PM EDT [facility] Outpatient Attender: Krishna Sibley MD 11/20/2019 02:20:00 PM EDT M19.90 [facility] M19.90 Outpatient Attender: Krishna Hilliarderrjimmie: No Family Do ctor Provided 11/20/2019 01:39:00 PM EDT - 11/20/2019 02:16:00 PM EDT [facility] Outpatient Attender: KWAME MADERA 0 04:07:00 PM EDT LT KNEE PAIN [facility] LT KNEE PAIN ([facility]) [facility] Nurse Visit [address] [place] [address] 11/13/2019 12:00:00 AM EDT eCW1 ([facility]) Outpatient Attender: KWAME Lowe: No Fami ly Doctor Provided 11/09/2019 03:10:00 PM EDT - 11/09/2019 03:50:00 PM EDT [facility] Outpatient Attender: KWAME Lowe: No Fami ly Doctor Provided 10/24/2019 01:01:00 PM EDT - 12/14/2019 01:02:00 PM EDT LEFT KNEE,HAMSTRING TIGHTNESS [facility] LEFT KNEE,HAMSTRING TIGHTNESS Patient discharged. Outpatient Attender: KWAME MADERA 0 02:13:00 PM EDT S99.922A,M25.562 [facility] S99.922A,M25.562 Outpatient Attender: KWAME Lowe: SUSHIL LOTT MD 09/28/2019 01:49:00 PM EDT - 09/28/2019 03:42:00 PM EDT [facility] [address] [place] [address] 08/24/2019 12:00:00 AM EDT eCW1 ([facility]) Outpatient Attender: Adrian MADERA Family [facility] 08/08/2019 11:20:00 AM EDT MEDENT ([facility]) Outpatient Attender: Adrian MADERA [facility] 07/05/2019 01:00:00 PM EDT MEDENT ([facility]) Outpatient Attender: Adrian MADERA [facility] 06/21/2019 10:30:00 AM EST MEDENT ([facility]) [facility] [address] [place] [address] 06/06/2019 12:00:00 AM EST eCW1 ([facility]) Outpatient Attender: Adrian MADERA [facility] 05/12/2019 10:30:00 AM EST MEDENT ([facility]) [facility] [address] [place] [address] 04/15/2019 12:00:00 AM EST eCW1 ([facility]) Outpatient Attender: Adrian MADERA [facility] 03/16/2019 12:20:00 PM EST MEDENT ([facility]) [facility] [address] [place] [address] 03/14/2019 12:00:00 AM EST eCW1 ([facility]) [facility] [address] [place] [address] 03/11/2019 12:00:00 AM EST eCW1 ([facility]) [facility] [address] [place] [address] 03/11/2019 12:00:00 AM EST eCW1 ([facility]) [facility] [address] [place] [address] 03/11/2019 12:00:00 AM EST eCW1 ([facility]) Immunizations Vaccine Date Status Description Data Source(s) Depo-Provera 150mg/1mL (Medroxy-Progestrone Acetate) 11:05:00 AM EST completed eCW1 ([facility]) Depo-Provera 150mg/1mL (Medroxy-Progestrone Acetate) 02:53:00 PM EDT completed eCW1 ([facility]) Depo-Provera 150mg/1mL (Medroxy-Progestrone Acetate) 02:53:00 PM EDT completed eCW1 ([facility]) Depo-Provera 150mg/1mL (Medroxy-Progestrone Acetate) 02:35:00 PM EDT completed eCW1 ([facility]) Depo-Provera 150mg/1mL (Medroxy-Progestrone Acetate) 02:35:00 PM EDT completed eCW1 ([facility]) Depo-Provera 150mg/1mL (Medroxy-Progestrone Acetate) 02:35:00 PM EDT completed eCW1 ([facility]) Depo-Provera 150mg/1mL (Medroxy-Progestrone Acetate) 02:16:00 PM EDT completed eCW1 ([facility]) Depo-Provera 150mg/1mL (Medroxy-Progestrone Acetate) 02:16:00 PM EDT completed eCW1 ([facility]) Depo-Provera 150mg/1mL (Medroxy-Progestrone Acetate) 02:16:00 PM EDT completed eCW1 ([facility]) Depo-Provera 150mg/1mL (Medroxy-Progestrone Acetate) 02:16:00 PM EDT completed eCW1 ([facility]) Depo-Provera 150mg/1mL (Medroxy-Progestrone Acetate) 10:28:00 AM EST completed eCW1 ([facility]) Depo-Provera 150mg/1mL (Medroxy-Progestrone Acetate) 10:28:00 AM EST completed eCW1 ([facility]) Depo-Provera 150mg/1mL (Medroxy-Progestrone Acetate) 10:28:00 AM EST completed eCW1 ([facility]) Depo-Provera 150mg/1mL (Medroxy-Progestrone Acetate) 10:28:00 AM EST completed eCW1 ([facility]) Depo-Provera 150mg/1mL (Medroxy-Progestrone Acetate) 08:21:00 AM EST completed eCW1 ([facility]) Depo-Provera 150mg/1mL (Medroxy-Progestrone Acetate) 08:21:00 AM EST completed eCW1 ([facility]) Depo-Provera 150mg/1mL (Medroxy-Progestrone Acetate) 08:21:00 AM EST completed eCW1 ([facility]) Depo-Provera 150mg/1mL (Medroxy-Progestrone Acetate) 08:21:00 AM EST completed eCW1 ([facility]) Medications Medication Brand Name Start Date Product Form Dose Route Admi nistrative Instructions Pharmacy Instructions Status Indications Reaction Description Data Source(s) meloxicam 15 MG Oral Tablet Meloxicam Meloxicam 11/30/2019 04:27 :57 PM EDT 15 MG active [facility] Alprazolam 0.5 MG Oral Tablet [Xanax] Xanax 06/21/2019 12:00:00 AM EST active MEDENT ([facility]) quetiapine 50 MG Oral Tablet Quetiapine Fumarate 06/21/2019 12:00:00 AM EST completed MEDENT ([facility]) Trintellix Trintellix 06/21/2019 12:00:00 AM EST ORAL a ctive MEDENT ([facility]) Acetaminophen 300 MG / butalbital 50 MG / Caffeine 40 MG Oral Capsule [Fioricet] Fioricet 05/12/2019 12:00:00 AM EST ORAL active MEDENT ([facility]) 12 HR dextromethorphan polistirex 6 MG/M L Extended Release Suspension [Delsym] Delsym 30 MG/5ML Delsym 30 MG/5ML 04/15/2019 12:00:00 AM EST 10. 0 {ml_as_needed} suspended Delsym 30 MG/5M L eCW1 ([facility]) Flonase 50 MCG/ACT Flonase 50 MCG/ACT 04/15/2019 12:00:00 AM EST 1.0 {spray_in_each_nostril} active Flonase 50 MCG/ACT eCW1 ([facility]) Prednisone 10 MG Oral Tablet PredniSONE 10 MG PredniSONE 10 MG 04/15/2019 12:00:00 AM EST 1.0 {tablet} suspended PredniSONE 10 MG eCW1 ([facility]) Albuterol Sulfate HFA 108 (90 Base) MCG/ACT Albuterol Sulfate HFA 108 (90 Base) MCG/ACT 04/15/2019 12:00:00 AM EST 2.0 {puffs_as_needed} active Albuterol Sulfate HFA 108 (90 Base) MCG/ACT eCW1 ([facility]) Albuterol Sulfate HFA 108 (90 Base) MCG/ACT Albuterol Sulfate HFA 108 (90 Base) MCG/ACT 04/15/2019 12:00:00 AM EST 2.0 {puffs_as_needed} active Albuterol Sulfate HFA 108 (90 Base) MCG/ACT eCW1 ([facility]) Flonase 50 MCG/ACT Flonase 50 MCG/ACT 04/15/2019 12:00:00 AM EST 1.0 {spray_in_each_nostril} active Flonase 50 MCG/ACT eCW1 ([facility]) Sudafed 30 MG Sudafed 30 MG 04/15/2019 12:00:00 AM EST active 1 tablet as needed eCW1 ([facility]) Sudafed 30 MG Sudafed 30 MG 04/15/2019 12:00:00 AM EST 1.0 {tablet_as_needed} suspended Sudafed 30 MG eCW1 ( [facility]) Flonase 50 MCG/ACT Flonase 50 MCG/ACT 04/15/2019 12:00:00 AM EST active 1 spray in each nostril eCW1 ([facility]) Neti Pot Sinus Wash 2300-700 MG Neti Pot Sinus Wash 2300-700 MG 04/15/2019 12:00:00 AM EST suspended Neti Pot Sinus Wash 2300-700 MG eCW1 ([facility]) Albuterol Sulfate HFA 108 (90 Base) MCG/ACT Albuterol Sulfate HFA 108 (90 Base) MCG/ACT 04/15/2019 12:00:00 AM EST active 2 puffs as needed eCW1 ([facility]) 12 HR dextromethorphan polistirex 6 MG/M L Extended Release Suspension [Delsym] Delsym 30 MG/5ML Delsym 30 MG/5ML 04/15/2019 12:00:00 AM EST active 10 ml as needed eCW1 ([facility]) Prednisone 10 MG Oral Tablet PredniSONE 10 MG PredniSONE 10 MG 04/15/2019 12:00:00 AM EST 1.0 {tablet} suspended PredniSONE 10 MG eCW1 ([facility]) 12 HR dextromethorphan polistirex 6 MG/M L Extended Release Suspension [Delsym] Delsym 30 MG/5ML Delsym 30 MG/5ML 04/15/2019 12:00:00 AM EST 10. 0 {ml_as_needed} suspended Delsym 30 MG/5M L eCW1 ([facility]) Neti Pot Sinus Wash 2300-700 MG Neti Pot Sinus Wash 2300-700 MG 04/15/2019 12:00:00 AM EST suspended Neti Pot Sinus Wash 2300-700 MG eCW1 ([facility]) Sudafed 30 MG Sudafed 30 MG 04/15/2019 12:00:00 AM EST 1.0 {tablet_as_needed} suspended Sudafed 30 MG eCW1 ( [facility]) Flonase 50 MCG/ACT Flonase 50 MCG/ACT 04/15/2019 12:00:00 AM EST 1.0 {spray_in_each_nostril} active Flonase 50 MCG/ACT eCW1 ([facility]) Neti Pot Sinus Wash 2300-700 MG Neti Pot Sinus Wash 2300-700 MG 04/15/2019 12:00:00 AM EST active as direc nicholas eCW1 ([facility]) Sudafed 30 MG Sudafed 30 MG 04/15/2019 12:00:00 AM EST 1.0 {tablet_as_needed} suspended Sudafed 30 MG eCW1 ( [facility]) Prednisone 10 MG Oral Tablet PredniSONE 10 MG PredniSONE 10 MG 04/15/2019 12:00:00 AM EST 1.0 {tablet} suspended PredniSONE 10 MG eCW1 ([facility]) PredniSONE 10 MG PredniSONE 10 MG 04/15/2019 12:00:00 AM EST active 1 tablet eCW1 ([facility]) 12 HR dextromethorphan polistirex 6 MG/M L Extended Release Suspension [Delsym] Delsym 30 MG/5ML Delsym 30 MG/5ML 04/15/2019 12:00:00 AM EST 10. 0 {ml_as_needed} suspended Delsym 30 MG/5M L eCW1 ([facility]) Neti Pot Sinus Wash 2300-700 MG Neti Pot Sinus Wash 2300-700 MG 04/15/2019 12:00:00 AM EST suspended Neti Pot Sinus Wash 2300-700 MG eCW1 ([facility]) Albuterol Sulfate HFA 108 (90 Base) MCG/ACT Albuterol Sulfate HFA 108 (90 Base) MCG/ACT 04/15/2019 12:00:00 AM EST 2.0 {puffs_as_needed} active Albuterol Sulfate HFA 108 (90 Base) MCG/ACT eCW1 ([facility]) Paroxetine HCL Paroxetine HCL 03/16/2019 12:00:00 AM EST OR AL completed MEDENT ([facility]) Hydroxyzine Hydrochloride 10 MG Oral Tablet Hydroxyzine HCL 03/16/2019 12:00:00 AM EST ORAL completed MEDENT ([facility]) Clonidine Hydrochloride 0.1 MG Oral Tablet Clonidine HCL 02/15/2019 12:00:00 AM EDT ORAL completed MEDENT ([facility]) 24 HR Amphetamine aspartate 3.75 MG / Am phetamine Sulfate 3.75 MG / Dextroamphetamine saccharate 3.75 MG / Dextroamphetamine Sulfate 3.75 MG Extended Release Oral Capsule Amphetamine-Dextroamphet ER 01/12/2019 12:00:00 AM EDT ORAL completed MEDENT ([facility]) Insurance Providers Payer name Policy type / Coverage type Policy ID Covered libertarian ID Covered libertarian's relationship to henley Policy Henley Plan Information [employer] [place] [employer] [id number] MO2 [id number] ANSI-Commercial [id number] [employer] [place] [employer] [id number] MO2 [id number] [employer]/BS Commercial [id number] Family Dependent [id number] [employer]/BS Commercial [id number] Family Dependent [id number] [place] [employer] [id number] Family Dependent 1 [id number] [employer] Commercial [id number] Family Dependent [id number] [facility]CIAL -O/P [id number] 18 [id number] [place] Choice Plus Commercial [id number] Family Dependent [id number] [employer]/BS Commercial [id number] Family Dependent [id number] [employer]BS Commercial [id number] Family Dependent [id number] [place] Commercial [id number] Family Dependent 1 [id number] [facility] PLAN O [id number] S [id number] [employer]/BS Commercial [id number] Family Dependent [id number] [employer]BS Commercial [id number] Family Dependent [id number] [place] Commercial [id number] Family Dependent 1 [id number] ANSI-Commercial [id number] [employer]/BS Commercial [id number] Family Dependent [id number] [employer]/BS Commercial [id number] Family Dependent [id number] [place] [employer] [id number] Family Dependent 1 [id number] [employer]/BS Commercial [id number] Family Dependent [id number] [employer] Commercial [id number] Family Dependent [id number] [place] [employer] [id number] Family Dependent 1 [id number] [employer] Commercial [id number] Family Dependent [id number] [employer] [place] [employer]ICE PLUS [id number] MO2 [id number] [employer] Commercial [id number] Family Dependent [id number] [employer]/BS Commercial [id number] Family Dependent [id number] [place] [employer] [id number] Family Dependent 1 [id number] [facility] [id number] SP [id number] [facility] [id number] MO2 1 [id number] [facility] O [id number] S 1 [id number] [facility] M[facility] O [id number] S [id number] [facility] [id number] SP [id number] [facility] [id number] MO2 1 [id number] [employer] [place] 306/806 [id number] MO2 [id number] [employer]/BS Commercial Family Dependent [employer] BC/BS Commercial Family Dependent [employer] BC/BS Commercial Family Dependent [employer] BC/BS Commercial Family Dependent EXCELLUS BCBS B [id number] C VYA [id number] [employer] [place] WAT[place] 306/806 [id number] MO2 [id number] Problems, Conditions, and Diagnoses Code Display Name Description Problem Type Effective Dates Data Source(s) 02015027 Mild recurrent major depression Mild recurrent m ajor depression Problem 07/05/2019 12:00:00 AM EDT [place] ([facility]) J45.901 [id number] Reactive airway dise ase with acute exacerbation, unspecified asthma severity, unspecified whether persistent Problem 04/15/2019 12:00:00 AM EST eCW1 ([facility]) J45.901 [id number] Reactive airway dise ase with acute exacerbation, unspecified asthma severity, unspecified whether persistent Problem 04/15/2019 12:00:00 AM EST eCW1 ([facility]) Surgeries/Procedures Procedure Description Date Indications Data Source(s) Injection, medroxyprogesterone acetate for contraceptive use , 150 mg 04/22/2020 12:00:00 AM EST eCW1 ([facility]) Magnetic resonance imaging of knee (procedure) 04:10:50 PM EDT [facility] Magnetic resonance imaging of knee (procedure) 04:10:50 PM [facility] Magnetic resonance imaging of knee (procedure) 04:10:50 PM [facility] Injection, medroxyprogesterone acetate for contraceptive use , 150 mg 11/13/2019 12:00:00 AM EDT eCW1 ([facility]) Xray Calcaneus (Heel) RT 09/28/2019 02:21:04 PM T [facility] Xray Calcaneus (Heel) LT 09/28/2019 02:21:04 PM [facility] X-ray of left knee (procedure) 09/28/2019 02:21:04 PM [facility] Xray Calcaneus (Heel) RT 09/28/2019 02:21:04 PM [facility] Xray Calcaneus (Heel) LT 09/28/2019 02:21:04 PM [facility] X-ray of left knee (procedure) 09/28/2019 02:21:04 PM [facility] Xray Calcaneus (Heel) RT 09/28/2019 02:21:04 PM [facility] Xray Calcaneus (Heel) LT 09/28/2019 02:21:04 PM [facility] X-ray of left knee (procedure) 09/28/2019 02:21:04 PM [facility] Xray Calcaneus (Heel) RT 09/28/2019 02:21:04 PM [facility] Xray Calcaneus (Heel) LT 09/28/2019 02:21:04 PM [facility] X-ray of left knee (procedure) 09/28/2019 02:21:04 PM [facility] Xray Calcaneus (Heel) RT 09/28/2019 02:21:04 PM [facility] Xray Calcaneus (Heel) LT 09/28/2019 02:21:04 PM [facility] X-ray of left knee (procedure) 09/28/2019 02:21:04 PM [facility] Injection, medroxyprogesterone acetate, 1 mg 0 12:00:00 AM EDT eCW1 ([facility]) THER/PROPH/DIAG INJ, SC/IM 08/24/2019 12:00:00 AM EDT eCW1 ([facility]) STREP A ASSAY W/OPTIC 04/15/2019 12:00:00 AM EST eCW1 ([facility]) INFLUENZA ASSAY W/OPTIC 04/15/2019 12:00:00 AM EST eCW1 ([facility]) Results ID Date Data Source [id number] 11/30/2019 12:54:00 PM EDT [facility] Patient Name: EVELIN AL : 2000 Sex: F Pt Unit #: [id number] Location:AMB.ORTHO Provider: Visit Date/Time: 11/30/19 Primary Insurance: [employer] Secondary Insurance: Self Pay Intake Vital Signs [...] Screening Screening Have you traveled outside of [facility] or [facility] in the last 14 days.: No Has patient experienced coronavirus symptoms: No [facility] Medical History Anxiety Surgical History Status post [...] habitus Orientation: alert, awake and oriented x3 [facility] Head: normal to inspection, normocephalic and atraumatic [...] Date Data Source 11/20/2019 04:14:00 PM EDT [facility] Name Value Range Interpretation Code Description Data Silva rce(s) Supporting Document(s) C reactive protein [Mass/volume] in Serum or Plasma Less Than 2.9 0.0 -5.0 N [facility] @Report as less than lower limit ID Date Data Source 11/20/2019 04:35:00 PM EDT [facility] Value Range Interpretation Code Description Data Silva rce(s) Supporting Document(s) Erythrocyte sedimentation rate by Westergren method 4 mm/hr 0-20 N [facility] @Reenter manual test result: 4@by Yanely Calderon at 11/20/19 1635. ID Date Data Source 11/22/2019 07:07:00 PM [facility] Value Range Interpretation Code Description Data Silva rce(s) Supporting Document(s) Nuclear Ab [Titer] in Serum by Immunofluorescence Negative . [facility] Neg ative <1:80 Borderline 1:80 Positive > 1:80Performed at: RN - [facility] [address] [id number] Director: Farhana Salmeron MD, Phone: [phone] ID Date Data Source [id number] 11/20/2019 04:14:00 PM [facility] Value Range Interpretation Code Description Data Silva rce(s) Supporting Document(s) Rheumatoid factor [Units/volume] in Serum by Nephelometry Le ss Than 10.0 0.0-14.0 N [facility] ID Date Data Source [id number] 11/22/2019 07:07:00 PM [facility] Value Range Interpretation Code Description Data Silva rce(s) Supporting Document(s) Cyclic citrullinated peptide IgA+IgG Ab [Units/volume] in Serum or Plasma by Immunoassay 4 units 0-19 [facility] pital Negative <20 Weak positive 20 - 39 Moderate positive 40 - 59 Strong positive >59Performed at: BN - [facility] [id number] [place], [place] [id number] Director: Kena Garrison MD, Phone: [phone] ID Date Data Source [id number] 11/20/2019 01:38:00 PM EDT [facility] Patient Name: EVELIN AL : 2000 Sex: F Pt Unit #: [id number] Location[facility] Provider: Visit Date/Time: 11/20/19 Primary Insurance: [employer] Secondary Insurance: Self Pay Intake Vital Signs [...] Screening Screening Have you traveled outside of [facility] or [facility] in the last 14 days.: No Has [...] habitus Orientation: alert, awake and oriented x3 [facility] Head: normal to inspection, normocephalic and atraumatic [...] - Unspecified osteoarthritis, unspecified site SNOMED Code(s): 1144999 Category: Medical Plan - Krishna Sibley MD: [...] rce(s) Supporting Document(s) ID Date Data Source [id number] 11/17/2019 05:57:00 PM EDT [facility] [address] [place] [id number] [phone] NAME SEX PT STATUS ACCOUNT NUMBER EVELIN AL REG REF [id number] ORDERING PHYSICIAN LOCATION MEDICAL RECORD NO. [id number]ENDING PHYSICIAN DATE OF DATE OF EXAM/TIME [...] Time ) Signed by: Niesha Suggs M.D., [facility] Reported By Niesha Suggs MD on [...] rce(s) Supporting Document(s) ID Date Data Source [id number] 11/09/2019 03:14:00 PM EDT [facility] Patient Name: EVELIN AL : 2000 Sex: F Pt Unit #: [id number] Location:[facility] Provider: Visit Date/Time: 11/09/19 Primary Insurance: [employer] Secondary Insurance: Self Pay Intake Vital [...] Screening Screening Have you traveled outside of [facility] or [facility] in the last 14 days.: No Has patient experienced coronavirus symptoms: No [facility] Medical History Anxiety Surgical History Status post [...] nourished Orientation: alert, awake and oriented x3 [facility] Head: normal to inspection, normocephalic and atraumatic [...] rce(s) Supporting Document(s) ID Date Data Source [id number] 10/24/2019 01:11:00 PM EDT [facility] Therapy Department EVELIN AL : 2000 Date: 10/24/19 [id number] Attending: Kwame Mahan PA-C PT Outpatient Evaluation - Evaluation/Subjective Diagnosis:: left knee chondramalagia, jennifer hamstring tightness Impairments: Pain, Decreased Strength, Impaired ambulation - Subjective Subjective: Patient presents with jennifer knee pain L>R that began about 1 year after she fractured bilcalcaneus from jumping off the bridge. PAtient works at [employer] and she is up/down stairs and walking [...] 3 weeks Short Term Goal #3: - USP goal #1: Patient to demonstrate 4/5 strength to reduce pain and improve knee valgus when performing stairs in 6 weeks Senior Communications Engineer Goal #2: Patient to report no pain with resuming exercises in 6 weeks USP goal #3: NA Frequency: 2x/week Rehab Potential: Good Visits Requested: 12 Expiration date of orders:: 12/05/19 Therapist Christina Mullen 10/24/19 1311 I certify this plan of care Cosigner Date Time LAST EDIT: Name Value Range Interpretation Code Description Data Silva rce(s) Supporting Document(s) ID Date Data Source [id number] 09/28/2019 03:05:00 PM EDT [facility] [facility] [address] [place], [place] [id number] [phone] NAME SEX PT STATUS ACCOUNT NUMBER EVELIN AL REG REF [id number] ORDERING PHYSICIAN LOCATION MEDICAL RECORD NO. Kwame Mahan [facility] [id number] ATTENDING PHYSICIAN DATE OF DATE OF EXAM/TIME [...] Trans Dt/Tm: Trans by: DT Prt Dt/Tm: [id number]: Total DLP = 0.00 mGy-cm Fluoroscopy Time (in secs): Name Value Range Interpretation Code Description Data Silva rce(s) Supporting Document(s) ID Date Data Source [id number] 09/28/2019 03:05:00 PM EDT [facility] [address] [place] [address] [phone] NAME SEX PT STATUS ACCOUNT NUMBER EVELIN AL REG REF [id number] ORDERING PHYSICIAN LOCATION MEDICAL RECORD NO. [facility] [id number] ATTENDING PHYSICIAN DATE OF DATE OF EXAM/TIME [...] rce(s) Supporting Document(s) ID Date Data Source [id number] 09/28/2019 02:53:00 PM EDT [facility] [address] [place] [place] [id number] [phone] NAME SEX PT STATUS ACCOUNT NUMBER EVELIN AL REG REF [id number] ORDERING PHYSICIAN LOCATION MEDICAL RECORD NO. Kwame CASSY-C [facility] [id number] ATTENDING PHYSICIAN DATE OF DATE OF EXAM/TIME [...] Reported By Siddharth Dodge MD on 09/28/19 2566 Signed By Siddharth Dodge MD on 09/28/19 1504 Date Time CC: Siddharth Dodge MD; No Family PHYS Provided Techn: EBEBR Trans Dt/Tm: Trans by: DT Prt Dt/Tm: [id number]: Total DLP = 0.00 mGy-cm Fluoroscopy Time (in secs): Name Value Range Interpretation Code Description Data Silva rce(s) Supporting Document(s) ID Date Data Source [id number] 09/28/2019 01:50:00 PM EDT [facility] Patient Name: EVELIN AL : 2000 Sex: F Pt Unit #: [id number] Location:AMB.ORTHO Provider: Visit Date/Time: 09/28/19 Primary Insurance: [facility] Secondary Insurance: Self Pay Intake Vital [...] Screening Screening Have you traveled outside of [facility] or [facility] in the last 14 days.: No Has [...] STREP SCREEN) 04/15/2019 12:00:00 AM EST eCW1 ([facility]) Name Value Range Interpretation Code Description Data Silva rce(s) Supporting Document(s) FULL REPORT IN LAB NOTES (eCW and Medent). GATS CULTURE (NEG STREP SCR) eCW1 ([facility]) Procedure Social History Code Duration Value Status Description Data Source(s ) Smoking 01/25/2020 12:00:00 AM EDT Current Smoker completed Curre nt Smoker eCW1 ([facility]) Smoking 01/25/2020 12:00:00 AM EDT Current Smoker completed Curre nt Smoker eCW1 ([facility]) Smoking 11/13/2019 12:00:00 AM EDT Current Smoker completed Curre nt Smoker eCW1 ([facility]) 11/09/2019 03:18:49 PM EDT Current every day smoker co mpleted Current every day smoker [facility] 11/09/2019 03:18:49 PM EDT Current every day smoker co mpleted Current every day smoker [facility] 11/09/2019 03:18:49 PM EDT Current every day smoker co mpleted Current every day smoker [facility] 11/09/2019 03:18:49 PM EDT Current every day smoker co mpleted Current every day smoker [facility] Smoking 11/09/2019 03:18:00 PM EDT Current every day smoker co mpleted Current every day smoker [facility] Smoking 11/09/2019 03:18:00 PM EDT Current every day smoker co mpleted Current every day smoker [facility] Smoking 11/09/2019 03:18:00 PM EDT Current every day smoker co mpleted Current every day smoker [facility] Smoking 11/09/2019 03:18:00 PM EDT Current every day smoker co mpleted Current every day smoker [facility] Vital Signs ID Date Data Source UNK Name Value Range Interpretation Code Description Data Source(s) Diastolic blood pressure 74 mm[Hg] 74 mm[Hg] W1 ([facility]) Systolic blood pressure 118 mm[Hg] 118 mm[Hg] e CW1 ([facility]) Body mass index (BMI) [Ratio] 18.90 kg/m2 18.90 kg/m2 W1 ([facility]) Body height 69 [in_i] 69 [in_i] W1 ([facility]) Body weight 128 [lb_av] 128 [lb_av] W1 ([facility]) Diastolic blood pressure 66 mm[Hg] 66 mm[Hg] eCW1 ([facility]) Systolic blood pressure 114 mm[Hg] 114 mm[Hg] e CW1 ([facility]) Body mass index (BMI) [Ratio] 17.57 kg/m2 17.57 kg/m2 eCW1 ([facility]) Body height 69 [in_i] 69 [in_i] eCW1 ([facility]) Body weight 119 [lb_av] 119 [lb_av] eCW1 ([facility]) Diastolic blood pressure 74 mm[Hg] 74 mm[Hg] MEDENT ([facility]) Systolic blood pressure 116 mm[Hg] 116 mm[Hg] M EDENT ([facility]) Oxygen saturation in Arterial blood by Pulse oximetry 98 % 98 % [facility] ([facility]) Body temperature 99.0 [degF] 99.0 [degF] MED[facility] ([facility]) Respiratory rate 18 /min 18 /min MED[facility] ( [facility]) Heart rate 83 /min 83 /min MED[facility] ([facility]) Body mass index (BMI) [Ratio] 18.8 kg/m2 18.8 k g/m2 [facility] ([facility]) Body weight 123.00 [lb_av] 123.00 [lb_av] MEDEN T ([facility]) Body height 67.9 [in_i] 67.9 [in_i] MEDENT ([facility]) 5'7.90" Oxygen saturation in Arterial blood by Pulse oximetry 99 % 99 % [facility] ([facility]) Body temperature 99.1 [degF] 99.1 [degF] [facility] ([facility]) Respiratory rate 20 /min 20 /min MED[facility] ( [facility]) Heart rate 93 /min 93 /min MED[facility] ([facility]) Body mass index (BMI) [Ratio] 18.1 kg/m2 18.1 k g/m2 [facility] ([facility]) Body weight 118.50 [lb_av] 118.50 [lb_av] MEDEN T ([facility]) Body height 67.9 [in_i] 67.9 [in_i] MEDENT ([facility]) " Diastolic blood pressure 68 mm[Hg] 68 mm[Hg] MEDENT ([facility]) Systolic blood pressure 108 mm[Hg] 108 [facility] Oxygen saturation in Arterial blood by Pulse oximetry 98 % 98 % [facility] ([facility]) Body temperature 99.3 [degF] 99.3 [degF] MED[facility] ([facility]) Respiratory rate 18 /min 18 /min MED[facility] ( [facility]) Heart rate 103 /min 103 /min [facility] ([facility]) Body mass index (BMI) [Ratio] 18.9 kg/m2 18.9 k g/m2 [facility] ([facility]) Body weight 124.00 [lb_av] 124.00 [lb_av] MEDEN T ([facility]) Body height 67.9 [in_i] 67.9 [in_i] MEDENT ([facility]) " Diastolic blood pressure 60 mm[Hg] 60 mm[Hg] [facility] Systolic blood pressure 106 mm[Hg] 106 mm[facility]Hg[facility] Oxygen saturation in Arterial blood by Pulse oximetry 98 % 98 % [facility] ([facility]) Body temperature 98.4 [degF] 98.4 [degF] [facility] Heart rate 104 /min 104 /min [facility] Body mass index (BMI) [Ratio] 18.0 kg/m2 18.0 k g/m2 [facility] ([facility]) Body weight 118.31 [lb_av] 118.31 [lb_av] MEDEN T ([facility]) Body height 67.9 [in_i] 67.9 [in_i] MEDENT ([facility]) " Diastolic blood pressure 62 mm[Hg] 62 mm[Hg] [facility] ([facility]) Systolic blood pressure 112 mm[Hg] 112 mm[Hg] M EDENT ([facility]) Diastolic blood pressure 67 mm[Hg] 67 mm[Hg] eCW1 ([facility]) Systolic blood pressure 121 mm[Hg] 121 mm[Hg] e CW1 ([facility]) Body temperature 98.4 [degF] 98.4 [degF] eCW1 ( [facility]) Respiratory rate 16 /min 16 /min eCW1 ([facility]) Heart rate 109 /min 109 /min eCW1 ([facility]) Body mass index (BMI) [Ratio] 17.57 kg/m2 17.57 kg/m2 eCW1 ([facility]) Body height 69 [in_us] 69 [in_us] eCW1 ([facility]) Body weight Measured 119 [lb_av] 119 [lb_av] eC W1 ([facility]) Oxygen saturation in Arterial blood by Pulse oximetry 99 % 99 % [facility] ([facility]) Body temperature 98.3 [degF] 98.3 [degF] [facility] ([facility]) Respiratory rate 20 /min 20 /min [facility] ( [facility]) Heart rate 100 /min 100 /min [facility] ([facility]) Body mass index (BMI) [Ratio] 17.8 kg/m2 17.8 k g/m2 [facility] ([facility]) Body weight 117.00 [lb_av] 117.00 [lb_av] MEDEN T ([facility]) Body height 67.9 [in_i] 67.9 [in_i] MEDENT ([facility]) 5'7.90" Diastolic blood pressure 82 mm[Hg] 82 mm[Hg] MED[facility] ([facility]) Systolic blood pressure 132 mm[Hg] 132 mm[Hg] M EDENT ([facility]) Diastolic blood pressure 74 mm[Hg] 74 mm[Hg] eCW1 ([facility]) Systolic blood pressure 114 mm[Hg] 114 mm[Hg] e CW1 ([facility]) Body temperature 97.7 [degF] 97.7 [degF] eCW1 ( [facility]) Respiratory rate 18 /min 18 /min eCW1 ([facility]) Heart rate 120 /min 120 /min eCW1 ([facility]) Body mass index (BMI) [Ratio] 17.57 kg/m2 17.57 kg/m2 eCW1 ([facility]) Body height 69 [in_us] 69 [in_us] eCW1 ([facility]) Body weight Measured 119 [lb_av] 119 [lb_av] eC W1 ([facility]) Patient Treatment Plan of Care Planned Activity Planned Date Details Description Data Source (s) 12 HR dextromethorphan polistirex 6 MG/ML Extended Rel ease Suspension [Delsym] 04/15/2019 12:00:00 AM EST eCW1 ([facility]) Flonase 50 MCG/ACT 04/15/2019 12:00:00 AM EST eCW1 ([facility]) Albuterol Sulfate HFA 108 (90 Base) MCG/ACT 04/15/2019 12:00:00 AM EST eCW1 ([facility]) Neti Pot Sinus Wash 2300-700 MG 04/15/2019 12:00:00 AM EST eCW1 ([facility]) PredniSONE 10 MG 04/15/2019 12:00:00 AM EST eCW1 ([facility]) Sudafed 30 MG 04/15/2019 12:00:00 AM EST eCW1 ([facility])
== END 2020-05-09 01:48 | disposition home or self-care (01) ==
LOC: M ED 00:04
DX: F43.0 Acute stress reaction (principal); F12.10 Cannabis abuse, uncomplicated; F33.9 Major depressive disorder, recurrent, unspecified

== ENCOUNTER → 2020-09-20 | Outpatient (REF) | payer OTHER ==
[2020-09-20 17:44] LABS: APPEARANCE, URINE HAZY (CLEAR); BACTERIA, URINE AUTO NEGATIVE (NEGATIVE); BILIRUBIN, URINE AUTO NEGATIVE (NEGATIVE); BLOOD, URINE BLOOD NEGATIVE (NEGATIVE); COLOR, URINE YELLOW (YELLOW); GLUCOSE, URINE (UA) AUTO NEGATIVE (NEGATIVE); KETONE, URINE AUTO NEGATIVE (NEGATIVE); LEUKOCYTE ESTERASE, URINE AUTO 2+ (NEGATIVE); NITRITE, URINE AUTO NEGATIVE (NEGATIVE); PROTEIN, URINE AUTO 1+ mg/dL (NEGATIVE); RBC, URINE AUTO 2 /HPF (0-3); SPECIFIC GRAVITY URINE AUTO 1.014 (1.002-1.035); SQUAMOUS EPITHELIAL CELL UR AU 7 /HPF (0-6); UROBILINOGEN, URINE AUTO 0.2 mg/dL (0.0-2.0); WBC, URINE AUTO 21 /HPF (0-3)
== END ==
LOC: M LAB REF 16:32
PROVIDERS: ATTEND Physician Assistant
DX: R30.0 Dysuria (principal)

== ENCOUNTER → 2021-01-06 | Outpatient (REF) | LOC: M EMP 12:37 | PROVIDERS: ATTEND Family Medicine | DX: Z20.822 Contact with and (suspected) exposure to COVID-19 (principal) ==

== ENCOUNTER → 2021-11-22 | Outpatient (REF) | payer OTHER, BC ==
[~2021-11-22] MED LIST changes: +AMPH1CAP16; +ARIP1TAB4; +BRIN1TAB3
== END ==
LOC: M LAB REF 11:00
PROVIDERS: ATTEND Physician Assistant
DX: R19.7 Diarrhea, unspecified (principal)

== ENCOUNTER → 2021-12-28 | Outpatient (REF) | payer BC | LOC: M LAB REF 17:24 | PROVIDERS: ATTEND Physician Assistant Medical | DX: R50.9 Fever, unspecified (principal) ==

== ENCOUNTER → 2022-04-28 | Outpatient (CLI) | payer BC ==
[2022-04-28 16:59] LABS: BASO % 0.1 % (0.0-1.0); EOS % 0.3 % (0.0-3.0); HEMATOCRIT 41.7 % (36.0-47.0); HEMOGLOBIN 13.5 g/dl (12.0-15.5); LYMPH # 1.9 10^3/uL (1.5-5.0); LYMPH % 27.6 % (24.0-44.0); MEAN CORPUSCULAR HEMOGLOBIN 28.1 pg (27.0-33.0); MEAN CORPUSCULAR HGB CONC 32.4 g/dl (32.0-36.5); MEAN CORPUSCULAR VOLUME 86.7 fl (80.0-96.0); MONO # 0.5 10^3/uL (0.0-0.8); NEUTROPHILS # 4.6 10^3/uL (1.5-8.5); NEUTROPHILS % 64.7 % (36.0-66.0); PLATELET COUNT, AUTOMATED 266 10^3/uL (150-450); RED BLOOD COUNT 4.81 10^6/uL (4.00-5.40)
[2022-04-28 17:19] LABS: ERYTHROCYTE SEDIMENTATION RATE 1 mm/hr (0-20)
[2022-04-28 17:20] LABS: IMMUNOGLOBULIN A 89.2 MG/DL (40-350); IMMUNOGLOBULIN G 986 MG/DL (650-1600); IMMUNOGLOBULIN M 171.2 MG/DL (50-300)
[2022-04-28 17:23] LABS: IMMUNOGLOBULIN E 27.8 IU/ML (0-378)
== END ==
LOC: M LAB 15:56
PROVIDERS: ATTEND Allergy & Immunology Allergy
DX: D84.9 Immunodeficiency, unspecified (principal)

== ENCOUNTER → 2022-10-06 | Outpatient (CLI) | payer BC ==
[2022-10-06 14:39] LABS: BASO % 0.3 % (0.0-1.0); EOS % 0.5 % (0.0-3.0); HEMOGLOBIN 14.8 g/dl (12.0-15.5); LYMPH # 2.4 10^3/uL (1.5-5.0); LYMPH % 28.2 % (24.0-44.0); MEAN CORPUSCULAR HEMOGLOBIN 28.5 pg (27.0-33.0); MEAN CORPUSCULAR HGB CONC 32.2 g/dl (32.0-36.5); MEAN CORPUSCULAR VOLUME 88.6 fl (80.0-96.0); MONO # 0.6 10^3/uL (0.0-0.8); MONO % 7.2 % (2.0-8.0); NEUTROPHILS # 5.5 10^3/uL (1.5-8.5); NEUTROPHILS % 63.5 % (36.0-66.0); PLATELET COUNT, AUTOMATED 315 10^3/uL (150-450); RED BLOOD COUNT 5.19 10^6/uL (4.00-5.40); WHITE BLOOD COUNT 8.6 10^3/uL (4.0-10.0)
[2022-10-06 14:54] LABS: THYROID STIMULATING HORMONE 0.287 uIU/ML (0.55-4.78)
[2022-10-06 14:55] LABS: TOTAL 25(OH) VITAMIN D 31.7 NG/ML (20.0-100.0)
[2022-10-06 14:56] LABS: C REACTIVE PROTEIN QUANTITATIV < 0.40 MG/DL (<1.0); IRON (FE) 96 UG/DL (50-170)
[2022-10-06 14:57] LABS: ALBUMIN 4.2 G/DL (3.2-5.2); ALKALINE PHOSPHATASE 71 U/L (46-116); ALT/SGPT 18 U/L (7.0-40); AST/SGOT 16 U/L (<34); BILIRUBIN,TOTAL 0.4 MG/DL (0.3-1.2); BLOOD UREA NITROGEN 13 MG/DL (9-23); CARBON DIOXIDE LEVEL 29 MMOL/L (20-31); CHLORIDE LEVEL 104 MMOL/L (98-107); CREATININE FOR GFR 0.79 MG/DL (0.55-1.30); GLOMERULAR FILTRATION RATE > 60.0 (>60); GLUCOSE, FASTING 67 MG/DL (60-100); MAGNESIUM LEVEL 1.8 MG/DL (1.8-2.4); PERCENT SATURATION 25.9 % (13.2-45.0); POTASSIUM SERUM 4.9 MMOL/L (3.5-5.1); SODIUM LEVEL 140 MMOL/L (136-145); TOTAL IRON BINDING CAPACITY 371 UG/DL (250-425); TOTAL PROTEIN 6.9 G/DL (5.7-8.2)
[2022-10-06 14:58] LABS: FOLATE > 24.0 NG/ML (>5.4); RHEUMATOID FACTOR QUANT < 3.5 IU/ML (<14); VITAMIN B12 LEVEL 248 PG/ML (211-911)
[2022-10-06 14:59] LABS: FREE T4 1.04 NG/DL (0.89-1.76)
[2022-10-06 15:09] LABS: HEPATITIS B SURFACE ANTIGEN NEGATIVE (NEGATIVE)
[2022-10-06 15:21] LABS: HIV 1&2 SCREEN NEGATIVE (NEGATIVE)
[2022-10-06 15:28] LABS: HEPATITIS B CORE ANTIBODY IGM NEGATIVE (NEGATIVE)
[2022-10-06 15:30] LABS: HEPATITIS C VIRUS ABY INDEX 0.1 INDEX (<0.8)
[2022-10-06 15:35] LABS: ERYTHROCYTE SEDIMENTATION RATE 6 mm/hr (0-20)
== END ==
LOC: M LAB 12:05
PROVIDERS: ATTEND Nurse Practitioner Adult Health
DX: R53.83 Other fatigue (principal); L65.9 Nonscarring hair loss, unspecified; R59.1 Generalized enlarged lymph nodes

== ENCOUNTER → 2022-12-09 | Outpatient (CLI) | payer BC ==
[2022-12-09 11:48] LABS: FREE T4 1.02 NG/DL (0.89-1.76); THYROID STIMULATING HORMONE 0.408 uIU/ML (0.55-4.78)
[2022-12-09 11:50] LABS: THYROGLOBULIN ANTIBODY < 15.0 U/ML (<60.0); THYROID PEROXIDASE ANTIBODY < 28.0 U/ML (<60.0)
== END ==
LOC: M LAB 10:38
PROVIDERS: ATTEND Nurse Practitioner Adult Health
DX: R94.6 Abnormal results of thyroid function studies (principal)

== ENCOUNTER → 2023-05-18 | Outpatient (CLI) | payer BC ==
[2023-05-18 13:42] LABS: FREE T4 1.14 NG/DL (0.89-1.76); THYROID STIMULATING HORMONE 0.465 uIU/ML (0.55-4.78)
[2023-05-19 12:08] LABS: TISSUE TRANSGLUTAMINASE IgA <2 U/mL (0-3); TISSUE TRANSGLUTAMINASE IgG <2 U/mL (0-5); UNITSIGA FOR GLIADIN IGA 6 units (0-19); UNITSIGG FOR GLIADIN IGG 3 units (0-19)
== END ==
LOC: M LAB 11:22
PROVIDERS: ATTEND Family Medicine
DX: K21.9 Gastro-esophageal reflux disease without esophagitis (principal); K59.00 Constipation, unspecified

== ENCOUNTER 2023-09-21 10:24 | Day surgery (SDC) | payer BC ==
[~2023-09-21] VITALS: Ht 175.3 cm; Wt 64.4 kg
[2023-09-21] MEDS: NS 1,000 ML IV ONE (06:00)
[~2023-09-21 10:24] MED LIST changes: +PANT40TA29 PO
[2023-09-21] MEDS ORDERED: fentaNYL 100 MCG/2 ML INJECTION As Ordered ONE (11:43)
[2023-09-21] MEDS ORDERED: propofoL 200 MG/20 ML VIAL As Ordered ONE (11:43)
[2023-09-21] MEDS ORDERED: LIDOCAINE 2% 100MG/5ML SDV (FOR ANES.) As Ordered ONE (11:43)
[2023-09-21] MEDS ORDERED: propofoL 500 MG/50 ML VIAL As Ordered ONE (11:43)
[2023-09-21 12:32] VITALS: TEMP 97.9
[2023-09-21 12:55] VITALS: BP 116/65; O2SAT 100
== END 2023-09-21 12:38 | disposition home or self-care (01) ==
LOC: M OPP 10:24
PROVIDERS: ATTEND Internal Medicine Gastroenterology
DX: K64.4 Residual hemorrhoidal skin tags (principal); K64.8 Other hemorrhoids; Q43.8 Other specified congenital malformations of intestine; K92.1 Melena; K29.70 Gastritis, unspecified, without bleeding; K30 Functional dyspepsia; R13.10 Dysphagia, unspecified; F17.200 Nicotine dependence, unspecified, uncomplicated; J45.909 Unspecified asthma, uncomplicated; Z79.899 Other long term (current) drug therapy
CPT/HCPCS: 43239; 45378; 88305; J3010

== ENCOUNTER → 2023-12-22 | Outpatient (CLI) | payer BC, OTHER | LOC: M LRY 10:38 | PROVIDERS: ATTEND Nurse Practitioner Family | DX: R14.0 Abdominal distension (gaseous) (principal) ==

== ENCOUNTER → 2024-01-19 | Outpatient (CLI) | payer BC, OTHER | LOC: M RAD 07:06 | PROVIDERS: ATTEND Nurse Practitioner Family | DX: R11.0 Nausea (principal) | CPT/HCPCS: 78264; A9541 ==

== ENCOUNTER → 2024-01-31 | Outpatient (REF) | payer BC, OTHER | LOC: M LAB REF 14:36 | PROVIDERS: ATTEND Physician Assistant Medical | DX: B82.9 Intestinal parasitism, unspecified (principal) ==